=== PATIENT | female | born 1930 | race Hispanic/Latino ===

== ENCOUNTER 2019-09-19 10:22 | Emergency (ER) | payer MEDICARE ==
[2019-09-19 10:57] VITALS: BP 208/79
--- NOTE | 2019-09-19 11:51 | Emergency Department Report ---
Upper Extremity - HPI Chief Complaint: Extremity Injury, Upper Stated Complaint: RT THUMB PAIN Time Seen by Provider: 09/19/19 11:44 Upper Extremity: Right Thumb Occurred When: >5 Days Mechanism: Other Severity: mild Symptoms: No Pain with Movement, No Deformity, No Limited Range of Movement, No Numbness, No Weakness, No Swelling, No Bruising/Ecchymosis, No Laceration or Abrasion Other History: 89 yo cauca. female comes to er with r thumb pain sp fall and fx many years ago. no new injury. her pcp at clinic told her to come to er. High functioning for age. full rom. ED Review of Systems ROS: Stated complaint: RT THUMB PAIN Other details as noted in HPI Comment: All other systems reviewed and negative ED Past Medical Hx - Past Medical History Previous Medical History?: Yes Hx Hypertension: Yes Hx GERD: Yes - Surgical History Past Surgical History?: Yes Additional Surgical History: broken ankle (r), right carotid endardectomy - Social History Smoking Status: Never Smoker Substance Use Type: None - Medications Home Medications: Home Medications Medication Instructions Recorded Confirmed Last Taken Type AtorvaSTATin [Lipitor] 1 tab PO DAILY 02/11/19 02/11/19 Unknown History Metoprolol Xl [Metoprolol 25 mg PO QDAY #30 05/20/19 Unknown Rx SUCCINATE ER TAB] Naproxen [Naprosyn] 500 mg PO Q12H PRN #20 tablet 09/19/19 Unknown Rx Upper Extremity Exam - Exam General: Vital signs noted. No distress. Alert and acting appropriately. Head and Torso: No HEENT Abnormality, No Neck Tenderness, No Chest/Lungs Abnormality, No Abdominal Tenderness, No Back Tenderness Shoulder Exam: Yes Normal Range of Motion in Shoulder, No Shoulder Tenderness, No Clavicle Tenderness, No Shoulder Deformity, No AC Joint Tenderness Arm Exam: No Arm/Humerus Tenderness, No Arm Deformity Elbow: No Elbow Tenderness, No Normal Range of Motion in Elbow, No Elbow Deformity Forearm: No Forearm Tenderness, No Forearm Deformity, No Pain with Pronation, No Pain with Supination Wrist: Yes Normal ROM in Wrist, No Wrist Tenderness, No Wrist Deformity, No Snuffbox Tenderness, No Pain with Axial Thumb Compression Hand: Yes Normal ROM in Digit(s), No Hand Tenderness, No Hand Deformity, No Digit Tenderness, No Digit(s) Deformity, No Tendon Dysfunction CMS Exam: No Broken Skin, No Normal Distal Pulses, No Normal Capillary Refill, No Normal Distal Sensation ED Course Vital Signs 09/19/19 10:56 Temperature 97.7 F Pulse Rate 68 Respiratory 18 Rate Blood Pressure 208/79 O2 Sat by Pulse 100 Oximetry ED Medical Decision Making - Medical Decision Making no fall/trauma old injury educated pt on arthritis- full rom and neurovasc intact dc home with naprosyn and pcp follow up; she has only tried tylenol at home with minimal relief Vital Signs 09/19/19 10:56 Temperature 97.7 F Pulse Rate 68 Respiratory 18 Rate Blood Pressure 208/79 O2 Sat by Pulse 100 Oximetry - Differential Diagnosis chronic injury Critical care attestation.: If time is entered above; I have spent that time in minutes in the direct care of this critically ill patient, excluding procedure time. ED Disposition Clinical Impression: Arthritis Disposition: DC-01 TO HOME OR SELFCARE Is pt being admited?: No Does the pt Need Aspirin: No Condition: Stable Instructions: Osteoarthritis (ED) Additional Instructions: warm compresses med as ordered today follow up with pcp Prescriptions: Naproxen [Naprosyn] 500 mg PO Q12H PRN #20 tablet PRN Reason: Pain Referrals: BEST HAMILTON MD [Staff Physician] - 3-5 Days Time of Disposition: 11:51
== END 2019-09-19 12:25 | disposition home or self-care (01) ==
LOC: ED 10:22
DX: M13.841 Other specified arthritis, right hand (principal); I10 Essential (primary) hypertension; K21.9 Gastro-esophageal reflux disease without esophagitis; Z98.890 Other specified postprocedural states; Z79.899 Other long term (current) drug therapy; Z88.0 Allergy status to penicillin
CPT/HCPCS: 99281

== ENCOUNTER 2020-02-25 13:02 | Emergency (ER) | payer MEDICARE ==
[2020-02-25 19:33] VITALS: BP 237/92
== END 2020-02-25 21:30 | disposition left against medical advice (07) ==
LOC: ED 13:02
DX: I10 Essential (primary) hypertension (principal); Z53.21 Procedure and treatment not carried out due to patient leaving prior to being seen by health care provider

== ENCOUNTER 2021-03-01 13:26 | Inpatient (IN) | payer MEDICARE ==
--- NOTE | 2021-03-01 13:51 | Emergency Department Report ---
<ALINA HELTON - Last Filed: 03/01/21 22:38> ED Abdominal Pain HPI - General Stated Complaint: ABD SWELLING/HIGH BLOOD PRESSURE Time Seen by Provider: 03/01/21 13:46 - Related Data Home Medications Medication Instructions Recorded Confirmed Last Taken AtorvaSTATin [Lipitor] 1 tab PO DAILY 02/11/19 03/02/21 Unknown Previous Rx's Medication Instructions Recorded Last Taken Type Metoprolol Xl [Metoprolol 25 mg PO QDAY #30 05/20/19 Unknown Rx SUCCINATE ER TAB] Naproxen [Naprosyn] 500 mg PO Q12H PRN #20 tablet 09/19/19 Unknown Rx Allergies Allergy/AdvReac Type Severity Reaction Status Date / Time Penicillins Allergy Unknown Rash Verified 03/02/21 04:37 ED Past Medical Hx - Medications Home Medications: Home Medications Medication Instructions Recorded Confirmed Last Taken Type AtorvaSTATin [Lipitor] 1 tab PO DAILY 02/11/19 03/02/21 Unknown History Metoprolol Xl [Metoprolol 25 mg PO QDAY #30 05/20/19 03/02/21 Unknown Rx SUCCINATE ER TAB] Naproxen [Naprosyn] 500 mg PO Q12H PRN #20 tablet 09/19/19 03/02/21 Unknown Rx ED Medical Decision Making - Lab Data Result diagrams: 03/01/21 14:36 03/01/21 14:36 ED Disposition Clinical Impression: Acute abdominal pain, Transaminitis, Hyperbilirubinemia, Biliary obstruction, Elevated blood pressure reading, Pleural effusion Disposition: ADMITTED INPATIENT Condition: Fair <TRUDI WITT - Last Filed: 03/02/21 00:37> ED Course - Reevaluation(s) Reevaluation #1: 03/01/21 18:02 Patient signed out to me by the previous physician, Dr. Pereyra. The patient is an 89-year-old female, who presents to the ER with a complaint of left lower quadrant pain, and abdominal swelling. She denies fever, chills, nausea, vomiting diarrhea, but she endorses decreased appetite, generalized weakness, and unintentional weight loss. The patient denies hematemesis and bright red blood per rectum. The patient believes that she has had an unremarkable colonoscopy within the past 10 years, she is not sure about a mammogram or Pap smear. The patient lives at home with a frail young child/daughter, and the patient is able to ambulate at home with a cane and a walker. The patient has obvious abdominal distention, no significant tenderness, and is found to have transaminitis and hyperbilirubinemia. CT scan pending at this time. We will reassess after CT scan has been interpreted. She is not in any acute distress at this time 03/01/21 18:32 Patient is found to have transaminitis, ascites, biliary distention, we will discuss with both GI on-call, and general surgery on-call. Antibiotics, blood cultures and lactic acid ordered. I did discuss the possibility of admitting this patient to the hospital service, she is agreeable to admission hospital [facility]. We will admit this patient to the medical service once we have discussed the patient's case with the aforementioned consultants. 03/01/21 19:10 Dr Helton to admit to [facility] Blood pressure improved. Both GI and general surgery have been consulted. - Consultations Consultation #1: 03/01/21 18:42 Contacted gastroenterology on-call, Dr. Major. We discussed the patient's history, physical, laboratory studies and imaging studies and the plan of care. His group will follow in consultation. He agrees with the plan of care. Consultation #2: 03/01/21 18:52 Discussed the patient's history, physical, laboratory studies and imaging studies with general surgeon on-call, Dr. Jyotsna Nicole She will follow in consultation and make further inpatient recommendations. She agrees with the plan of care. ED Medical Decision Making - Lab Data Result diagrams: 03/01/21 14:36 03/01/21 14:36 Vital Signs 03/01/21 14:30 Temperature 98.9 F Pulse Rate 90 Respiratory 16 Rate Blood Pressure 204/98 O2 Sat by Pulse 98 Oximetry Lab Results 03/01/21 03/01/21 03/01/21 Range/Units 14:36 14:36 14:36 WBC 8.1 (4.5-11.0) K/mm3 RBC 4.44 (3.65-5.03) M/mm3 Hgb 14.7 H (10.1-14.3) gm/dl Hct 42.8 (30.3-42.9) % MCV 96 (79-97) fl MCH 33 H (28-32) pg MCHC 34 (30-34) % RDW 13.6 (13.2-15.2) % Plt Count 245 (140-440) K/mm3 Lymph % (Auto) 18.8 (13.4-35.0) % [place] % (Auto) 12.7 H (0.0-7.3) % Eos % (Auto) 0.9 (0.0-4.3) % Baso % (Auto) 0.7 (0.0-1.8) % Lymph # (Auto) 1.5 (1.2-5.4) K/mm3 [place] # (Auto) 1.0 H (0.0-0.8) K/mm3 Eos # (Auto) 0.1 (0.0-0.4) K/mm3 Baso # (Auto) 0.1 (0.0-0.1) K/mm3 Seg Neutrophils % 66.9 (40.0-70.0) % Seg Neutrophils # 5.4 (1.8-7.7) K/mm3 PT 16.5 H (12.2-14.9) Sec. INR 1.28 H (0.87-1.13) APTT 35.4 (24.2-36.6) Sec. Sodium 136 L (137-145) mmol/L Potassium 3.8 (3.6-5.0) mmol/L Chloride 102.0 (98-107) mmol/L Carbon Dioxide 22 (22-30) mmol/L Anion Gap 16 mmol/L BUN 15 (7-17) mg/dL Creatinine 0.7 (0.6-1.2) mg/dL Estimated GFR > 60 ml/min BUN/Creatinine Ratio 21 % Glucose 110 H (65-100) mg/dL Calcium 9.4 (8.4-10.2) mg/dL Total Bilirubin 3.10 H (0.1-1.2) mg/dL Direct Bilirubin 2.0 H (0-0.2) mg/dL Indirect Bilirubin 1.1 mg/dL AST 101 H (5-40) units/L ALT 47 (7-56) units/L Alkaline Phosphatase 121 (35-129) units/L Total Protein 5.9 L (6.3-8.2) g/dL Albumin 2.9 L (3.9-5) g/dL Albumin/Globulin Ratio 1.0 % Lipase 24 (13-60) units/L - Radiology Data Radiology results: pending, report reviewed, image reviewed CT abdomen pelvis w con INDICATION / CLINICAL INFORMATION: L.L.Q. abdominal pain with abd distention x 5 days, 100ml of omnipaque 300 given. TECHNIQUE: Axial CT imaging of abdomen and pelvis was obtained with IV contrast. Coronal and sagittal reformatted imaging obtained and reviewed. All CT scans at this location are performed using CT dose reduction for ALARA by means of automated exposure control. COMPARISON: None available. FINDINGS: CT abdomen with contrast demonstrates severe intrahepatic biliary dilatation. There is marked dilatation of the common bile duct as well. The common bile duct measures 1.7 cm in diameter. The gallbladder is distended but does not appear to be acutely inflamed. The liver is otherwise unremarkable. The spleen contains several cysts, but is otherwise normal. No visible pancreatic mass. There is a moderate to large amount of free fluid throughout the upper abdomen. There is a 4.5 cm simple cyst within the left kidney. The kidneys are otherwise unremarkable. Small hiatal hernia. Bilateral pleural effusions, larger on the right. Right basilar parenchymal disease felt to most likely be atelectasis. CT pelvis with contrast does not demonstrate any mass or focal inflammatory change. Large amount of free fluid is seen throughout the pelvis. GI tract is grossly unremarkable. The appendix is not identified. Visualized lung bases show a very small left pleural effusion and a small to moderate size right pleural effusion. There is mild right basilar atelectasis.. No acute significant osseous abnormality is noted. IMPRESSION: 1. This is an abnormal CT scan. 2. There is severe dilatation of the biliary tree including the common bile duct and intrahepatic biliary system. The common bile duct measures 17 mm in diameter with a normal diameter being 6 mm or less. The source of the obstruction is unclear. There is gallbladder distention without associated inflammatory change. Further evaluation to determine the cause of the biliary dilatation is recommended. ERCP may provide the best answer. 2. Large amount of ascites noted throughout the abdomen and pelvis. 3. Bilateral pleural effusions, larger on the right. Signer Name: Hayley Bustillos MD Signed: 03/01/2021 5:06 PM Workstation Name: [id number] ED Disposition Is pt being admited?: Yes Does the pt Need Aspirin: No <RAF PEREYRA - Last Filed: 03/02/21 15:43> ED Abdominal Pain HPI - History of Present Illness Initial Comments: 89-year-old female, history of hypertension, presents to ED with abdominal distention over the last 5 days. Patient reports only some very mild left lower quadrant pain. She denies any fever, nausea or vomiting, extremity swelling. Patient denies any tobacco or alcohol use. MD Complaint: other (Abdominal distention) -: days(s) (5) Location: diffuse Radiation: none Migration to: no migration Severity: moderate Quality: dull Consistency: constant Improves With: nothing Worsens With: nothing Associated Symptoms: denies: nausea, vomiting, diarrhea, fever ED Review of Systems ROS: Stated complaint: ABD SWELLING/HIGH BLOOD PRESSURE Other details as noted in HPI Comment: All other systems reviewed and negative Constitutional: denies: chills, fever Gastrointestinal: abdominal pain. denies: nausea, vomiting, diarrhea ED Past Medical Hx - Past Medical History Hx Hypertension: Yes Hx GERD: Yes - Surgical History Additional Surgical History: broken ankle (r), right carotid endardectomy - Social History Smoking Status: Never Smoker Substance Use Type: None ED Physical Exam - General General appearance: alert, in no apparent distress - Head Head exam: Present: atraumatic, normocephalic - Eye Eye exam: Present: normal appearance, EOMI, scleral icterus (Very slightly icteric sclera) - ENT ENT exam: Present: mucous membranes moist - Neck Neck exam: Present: normal inspection - Respiratory Respiratory exam: Present: normal lung sounds bilaterally. Absent: respiratory distress - Cardiovascular Cardiovascular Exam: Present: regular rate, normal rhythm - GI/Abdominal GI/Abdominal exam: Present: soft, distended (Moderately), other. Absent: tenderness - Extremities Exam Extremities exam: Present: normal inspection - Neurological Exam Neurological exam: Present: alert, oriented X3 - Psychiatric Psychiatric exam: Present: normal affect, normal mood - Skin Skin exam: Present: warm, dry, intact, normal color ED Course Vital Signs 03/01/21 03/01/21 03/01/21 14:30 15:00 17:00 Temperature 98.9 F Pulse Rate 90 80 76 Respiratory 16 16 16 Rate Blood Pressure 204/98 Blood Pressure 198/98 168/88 [Left] O2 Sat by Pulse 98 97 98 Oximetry 03/01/21 03/01/21 03/01/21 18:09 18:16 18:30 Temperature Pulse Rate 88 90 91 H Respiratory 18 14 13 Rate Blood Pressure 163/74 163/74 Blood Pressure 160/92 [Left] O2 Sat by Pulse 97 97 93 Oximetry 03/01/21 03/01/21 03/01/21 18:31 18:32 18:46 Temperature Pulse Rate 91 H 91 H Respiratory 18 13 12 Rate Blood Pressure 163/74 Blood Pressure [Left] O2 Sat by Pulse 95 96 95 Oximetry 03/01/21 03/01/21 03/01/21 18:54 19:00 19:16 Temperature Pulse Rate 90 90 93 H Respiratory 11 L 16 14 Rate Blood Pressure 167/84 163/74 163/74 Blood Pressure [Left] O2 Sat by Pulse 94 94 94 Oximetry 03/01/21 03/01/21 03/01/21 19:30 19:46 20:00 Temperature Pulse Rate 92 H 93 H 94 H Respiratory 20 14 15 Rate Blood Pressure 163/74 163/74 165/80 Blood Pressure [Left] O2 Sat by Pulse 93 96 94 Oximetry 03/01/21 03/01/21 03/01/21 20:16 20:30 20:46 Temperature Pulse Rate 96 H 91 H 90 Respiratory 18 18 12 Rate Blood Pressure 165/80 165/80 165/80 Blood Pressure [Left] O2 Sat by Pulse 94 94 95 Oximetry 03/01/21 03/01/21 03/01/21 21:00 21:16 21:30 Temperature Pulse Rate 91 H 89 88 Respiratory 14 15 12 Rate Blood Pressure 174/77 165/80 165/80 Blood Pressure [Left] O2 Sat by Pulse 95 94 94 Oximetry 03/01/21 03/01/21 03/01/21 21:46 23:00 23:16 Temperature Pulse Rate 98 H 92 H 92 H Respiratory 18 18 13 Rate Blood Pressure 165/80 165/57 165/57 Blood Pressure [Left] O2 Sat by Pulse 95 93 Oximetry 03/01/21 03/01/21 03/02/21 23:30 23:46 00:00 Temperature Pulse Rate 93 H 92 H 97 H Respiratory 18 20 18 Rate Blood Pressure 165/57 165/57 155/84 Blood Pressure [Left] O2 Sat by Pulse 92 92 96 Oximetry 03/02/21 03/02/21 03/02/21 00:16 00:30 00:46 Temperature Pulse Rate 98 H 97 H 94 H Respiratory 15 17 16 Rate Blood Pressure 155/84 155/84 155/84 Blood Pressure [Left] O2 Sat by Pulse 95 94 94 Oximetry 03/02/21 03/02/21 03/02/21 01:20 01:30 01:40 Temperature Pulse Rate 84 85 83 Respiratory 17 15 15 Rate Blood Pressure 192/87 192/87 192/87 Blood Pressure [Left] O2 Sat by Pulse 94 94 95 Oximetry 03/02/21 03/02/21 03/02/21 01:50 02:00 02:10 Temperature Pulse Rate 84 87 87 Respiratory 11 L 12 16 Rate Blood Pressure 175/74 175/74 192/87 Blood Pressure [Left] O2 Sat by Pulse 96 94 95 Oximetry 03/02/21 03/02/21 03/02/21 02:20 02:30 02:40 Temperature Pulse Rate 89 90 89 Respiratory 15 10 L 15 Rate Blood Pressure 192/87 192/87 175/74 Blood Pressure [Left] O2 Sat by Pulse 94 95 94 Oximetry ED Medical Decision Making - Lab Data Result diagrams: 03/02/21 04:40 03/02/21 04:40 - Medical Decision Making 89-year-old female presents to ED with abdominal distention over the last 5 days. Patient initially hypertensive, however blood pressure has improved without intervention. Patient has slightly icteric sclera on exam. No significant jaundice of the skin. No abdominal tenderness on exam. Abdomen is distended with likely ascites present. Labs show total bilirubin of 3.1 with normal lipase. We are currently awaiting results of CT abdomen pelvis. Patient is signed out to Dr. Witt to follow-up on CT results. - Differential Diagnosis Malignancy, cirrhosis, infection Critical care attestation.: If time is entered above; I have spent that time in minutes in the direct care of this critically ill patient, excluding procedure time.
[2021-03-01 15:22] LABS: Basophils # (Auto) 0.1 K/mm3 (0.0-0.1); Basophils % (Auto) 0.7 % (0.0-1.8); Eosinophils # (Auto) 0.1 K/mm3 (0.0-0.4); Eosinophils % (Auto) 0.9 % (0.0-4.3); Hematocrit 42.8 % (30.3-42.9); Hemoglobin 14.7 gm/dl (10.1-14.3); Lymphocytes # (Auto) 1.5 K/mm3 (1.2-5.4); Lymphocytes % (Auto) 18.8 % (13.4-35.0); Mean Corpuscular HGB Conc 34 % (30-34); Mean Corpuscular Volume 96 fl (79-97); Monocytes % (Auto) 12.7 % (0.0-7.3); Platelet Count 245 K/mm3 (140-440); Red Blood Count 4.44 M/mm3 (3.65-5.03); Red Cell Distribution Width 13.6 % (13.2-15.2)
[2021-03-01 15:33] LABS: INR 1.28 (0.87-1.13); Partial Thromboplastin Time 35.4 Sec. (24.2-36.6)
[2021-03-01 15:43] LABS: Alanine Aminotransferase 47 units/L (7-56); Albumin 2.9 g/dL (3.9-5); Blood Urea Nitrogen 15 mg/dL (7-17); Calcium 9.4 mg/dL (8.4-10.2); Hemolysis Index 3
[2021-03-01 15:54] LABS: BUN/Creatinine Ratio 21
[2021-03-01] MEDS ORDERED: MORPHINE 4 MG/1 ML INJ IV ONE (18:02)
--- NOTE | 2021-03-01 18:10 | Cat Scan Report ---
CT abdomen pelvis w con INDICATION / CLINICAL INFORMATION: L.L.Q. abdominal pain with abd distention x 5 days, 100ml of omnipaque 300 given. TECHNIQUE: Axial CT imaging of abdomen and pelvis was obtained with IV contrast. Coronal and sagittal reformatte d imaging obtained and reviewed. All CT scans at this location are performed using CT dose reduction for ALARA by means of automated exposure control. COMPARISON: None available. FINDINGS: CT abdomen with contrast demonstrates severe intrahepatic biliary dilatation. There is marked dilatat ion of the common bile duct as well. The common bile duct measures 1.7 cm in diameter. The gallbladde r is distended but does not appear to be acutely inflamed. The liver is otherwise unremarkable. The s pleen contains several cysts, but is otherwise normal. No visible pancreatic mass. There is a moderat e to large amount of free fluid throughout the upper abdomen. There is a 4.5 cm simple cyst within th e left kidney. The kidneys are otherwise unremarkable. Small hiatal hernia. Bilateral pleural effusio ns, larger on the right. Right basilar parenchymal disease felt to most likely be atelectasis. CT pelvis with contrast does not demonstrate any mass or focal inflammatory change. Large amount of f ree fluid is seen throughout the pelvis. GI tract is grossly unremarkable. The appendix is not identi fied. Visualized lung bases show a very small left pleural effusion and a small to moderate size right pleu ral effusion. There is mild right basilar atelectasis.. No acute significant osseous abnormality is noted. IMPRESSION: 1. This is an abnormal CT scan. 2. There is severe dilatation of the biliary tree including the common bile duct and intrahepatic jason iary system. The common bile duct measures 17 mm in diameter with a normal diameter being 6 mm or les s. The source of the obstruction is unclear. There is gallbladder distention without associated infla mmatory change. Further evaluation to determine the cause of the biliary dilatation is recommended. E SERVICE DELIVERY MANAGER may provide the best answer. 2. Large amount of ascites noted throughout the abdomen and pelvis. 3. Bilateral pleural effusions, larger on the right. Signer Name: Hayley Bustillos MD Signed: 03/01/2021 6:06 PM Workstation Name: [id number]
[2021-03-01] MEDS ORDERED: MORPHINE 2 MG/1 ML INJ IV ONE (22:10)
--- NOTE | 2021-03-01 22:35 | History and Physical Report ---
History of Present Illness Date of examination: 03/01/21 Date of admission: 03/01/21 19:11 Chief complaint: Abdominal distention for 5 days History of present illness: 89-year-old female with history of hypertension and GERD presents to the emergency room for abdominal distention of 5 days. Patient is very specific that the abdominal distention has been there for 5 days and not for a long period of time. Patient also has icterus. No fever or nausea or vomiting. No extremity swelling. No. No nicotine use. No altered sensorium. No fever or chills. - Past Medical History --Hypertension: Yes --GERD: Yes - Surgical History Additional Surgical History: broken ankle (r), right carotid endardectomy - Social History --Smoking Status: Never Smoker --Substance Use Type: None -Family history -- Htn - Medications Home Medications: Home Medications Medication Instructions Recorded Confirmed Last Taken Type AtorvaSTATin [Lipitor] 1 tab PO DAILY 02/11/19 02/11/19 Unknown History Metoprolol Xl [Metoprolol 25 mg PO QDAY #30 05/20/19 Unknown Rx SUCCINATE ER TAB] Naproxen [Naprosyn] 500 mg PO Q12H PRN #20 tablet 09/19/19 Unknown Rx Review of Systems Comment: All other systems reviewed and negative Constitutional: denies: chills, fever Gastrointestinal: abdominal pain. denies: nausea, vomiting, diarrhea Medications and Allergies Allergies Allergy/AdvReac Type Severity Reaction Status Date / Time Penicillins Allergy Unknown Rash Verified 03/02/21 04:37 Home Medications Medication Instructions Recorded Confirmed Last Taken Type AtorvaSTATin [Lipitor] 1 tab PO DAILY 02/11/19 02/11/19 Unknown History Metoprolol Xl [Metoprolol 25 mg PO QDAY #30 05/20/19 Unknown Rx SUCCINATE ER TAB] Naproxen [Naprosyn] 500 mg PO Q12H PRN #20 tablet 09/19/19 Unknown Rx Active Meds: Active Medications Levofloxacin/Dextrose (Levaquin 500mg/100ml) 500 mg in 100 mls @ 100 mls/hr IV ONCE ONE; Protocol Stop: 03/01/21 22:59 Exam - Constitutional Vitals: Temp Pulse Resp BP Pulse Ox 98.9 F 91 H 12 163/74 95 03/01/21 14:30 03/01/21 18:46 03/01/21 18:46 03/01/21 18:46 03/01/21 18:46 General appearance: Present: no acute distress, well-nourished, obese - EENT Eyes: Present: PERRL, scleral icterus ENT: hearing intact, clear oral mucosa - Neck Neck: Present: supple, normal ROM - Respiratory Respiratory effort: normal Respiratory: bilateral: CTA - Cardiovascular Heart rate: 78 Rhythm: regular Heart Sounds: Present: S1 & S2. Absent: rub, click - Extremities Extremities: pulses symmetrical, No edema Peripheral Pulses: within normal limits - Abdominal General gastrointestinal: Present: soft, non-tender, distended, normal bowel sounds Female genitourinary: Present: normal - Rectal Rectal Exam: deferred - Integumentary Integumentary: Present: clear, warm, dry - Musculoskeletal Musculoskeletal: gait normal, strength equal bilaterally - Psychiatric Psychiatric: appropriate mood/affect, intact judgment & insight - Neurologic Neurologic: CNII-XII intact, moves all extremities - Allied Health Allied health notes reviewed: nursing, case management HEART Score - HEART Score History: Slightly suspicious Age: > 65 Risk factors: 1-2 risk factors Troponin: < normal limit - Critical Actions Critical Actions: 0-3 pts:0.9-1.7%risk of adverse cardiac event.Candidate for discharge Results - Labs CBC & Chem 7: 03/02/21 04:40 03/02/21 04:40 Labs: Laboratory Last Values WBC 8.1 K/mm3 (4.5-11.0) 03/01/21 14:36 RBC 4.44 M/mm3 (3.65-5.03) 03/01/21 14:36 Hgb 14.7 gm/dl (10.1-14.3) H 03/01/21 14:36 Hct 42.8 % (30.3-42.9) 03/01/21 14:36 MCV 96 fl (79-97) 03/01/21 14:36 MCH 33 pg (28-32) H 03/01/21 14:36 MCHC 34 % (30-34) 03/01/21 14:36 RDW 13.6 % (13.2-15.2) 03/01/21 14:36 Plt Count 245 K/mm3 (140-440) 03/01/21 14:36 Lymph % (Auto) 18.8 % (13.4-35.0) 03/01/21 14:36 [place] % (Auto) 12.7 % (0.0-7.3) H 03/01/21 14:36 Eos % (Auto) 0.9 % (0.0-4.3) 03/01/21 14:36 Baso % (Auto) 0.7 % (0.0-1.8) 03/01/21 14:36 Lymph # (Auto) 1.5 K/mm3 (1.2-5.4) 03/01/21 14:36 [place] # (Auto) 1.0 K/mm3 (0.0-0.8) H 03/01/21 14:36 Eos # (Auto) 0.1 K/mm3 (0.0-0.4) 03/01/21 14:36 Baso # (Auto) 0.1 K/mm3 (0.0-0.1) 03/01/21 14:36 Seg Neutrophils % 66.9 % (40.0-70.0) 03/01/21 14:36 Seg Neutrophils # 5.4 K/mm3 (1.8-7.7) 03/01/21 14:36 PT 16.5 Sec. (12.2-14.9) H 03/01/21 14:36 INR 1.28 (0.87-1.13) H 03/01/21 14:36 APTT 35.4 Sec. (24.2-36.6) 03/01/21 14:36 Sodium 136 mmol/L (137-145) L 03/01/21 14:36 Potassium 3.8 mmol/L (3.6-5.0) 03/01/21 14:36 Chloride 102.0 mmol/L (98-107) 03/01/21 14:36 Carbon Dioxide 22 mmol/L (22-30) 03/01/21 14:36 Anion Gap 16 mmol/L 03/01/21 14:36 BUN 15 mg/dL (7-17) 03/01/21 14:36 Creatinine 0.7 mg/dL (0.6-1.2) 03/01/21 14:36 Estimated GFR > 60 ml/min 03/01/21 14:36 BUN/Creatinine Ratio 21 % 03/01/21 14:36 Glucose 110 mg/dL (65-100) H 03/01/21 14:36 Lactic Acid 1.30 mmol/L (0.7-2.0) 03/01/21 18:43 Calcium 9.4 mg/dL (8.4-10.2) 03/01/21 14:36 Total Bilirubin 3.10 mg/dL (0.1-1.2) H 03/01/21 14:36 Direct Bilirubin 2.0 mg/dL (0-0.2) H 03/01/21 14:36 Indirect Bilirubin 1.1 mg/dL 03/01/21 14:36 AST 101 units/L (5-40) H 03/01/21 14:36 ALT 47 units/L (7-56) 03/01/21 14:36 Alkaline Phosphatase 121 units/L (35-129) 03/01/21 14:36 Total Protein 5.9 g/dL (6.3-8.2) L 03/01/21 14:36 Albumin 2.9 g/dL (3.9-5) L 03/01/21 14:36 Albumin/Globulin Ratio 1.0 % 03/01/21 14:36 Lipase 24 units/L (13-60) 03/01/21 14:36 Short CBC 03/01/21 03/02/21 Range/Units 14:36 04:40 WBC 8.1 9.4 (4.5-11.0) K/mm3 Hgb 14.7 H 14.3 (10.1-14.3) gm/dl Hct 42.8 42.0 (30.3-42.9) % Plt Count 245 234 (140-440) K/mm3 BMP 03/01/21 03/02/21 14:36 04:40 Sodium 136 L 138 Potassium 3.8 4.0 Chloride 102.0 105.4 Carbon Dioxide 22 22 BUN 15 13 Creatinine 0.7 0.8 Glucose 110 H 95 Calcium 9.4 9.3 Liver Function 03/01/21 03/02/21 Range/Units 14:36 04:40 Total Bilirubin 3.10 H 3.40 H (0.1-1.2) mg/dL Direct Bilirubin 2.0 H (0-0.2) mg/dL AST 101 H 98 H (5-40) units/L ALT 47 50 (7-56) units/L Alkaline Phosphatase 121 121 (35-129) units/L Albumin 2.9 L 2.7 L (3.9-5) g/dL - Imaging and Cardiology CT Scan - head: report reviewed Imaging and Cardiology: Abdominal CAT scan Severe dilatation of the biliary tree including the common bile duct and intrahepatic biliary system. The common bile duct measures 17 mm in diameter with a normal diameter being 6 mm or less. The source of the obstruction is unclear. There is a gallbladder distention without associated inflammatory changes. Further evaluation is good, and the cause of biliary dilation is responded. ERCP may produce the best answer. Large amount of ascites noted throughout the abdomen and pelvis. Bilateral pleural effusions larger on the right. Abdominal ultrasound Reports intermittent. Assessment and Plan Advance Directives: Yes (Full code) VTE prophylaxis?: Chemical Plan of care discussed with patient/family: Yes - Patient Problems (1) Ascites Current Visit: Yes Status: Acute Qualifiers: Ascites type: other type Qualified Code(s): R18.8 - Other ascites Plan to address problem: Etiology unclear. Patient stated is been there for only 5 days which is difficult to believe May be ongoing for the last few months. Patient demonstrates immunity nonrotation. The site of obstruction not known. (2) Hyperbilirubinemia Current Visit: Yes Status: Acute Plan to address problem: Note dated. Dilated. Signs of obstruction not known differential diagnosis of pancreatic head mass. Patient may need ERCP (3) Transaminitis Current Visit: Yes Status: Acute Plan to address problem: Transaminitis mild Acute hepatitis profile requested (4) Hypertension Current Visit: Yes Status: Chronic Qualifiers: Hypertension type: primary hypertension Qualified Code(s): I10 - Essential (primary) hypertension Plan to address problem: Continue antihypertensives Adjust medications (5) GERD (gastroesophageal reflux disease) Current Visit: Yes Status: Chronic Qualifiers: Esophagitis presence: without esophagitis Qualified Code(s): K21.9 - Gastro-esophageal reflux disease without esophagitis Plan to address problem: Continue PPIs (6) Malnutrition Current Visit: Yes Status: Chronic Qualifiers: Protein-calorie malnutrition severity: moderate Plan to address problem: Moderate malnutrition secondary to poor dietary intake Dietary supplements requested (7) DVT prophylaxis Current Visit: Yes Status: Acute Plan to address problem: On heparin and GI prophylaxis
[2021-03-01] MEDS ORDERED: MORPHINE 2 MG/1 ML INJ IV PRN (22:39)
[2021-03-01] MEDS ORDERED: ONDANSETRON 4 MG/2 ML INJ IV PRN (22:39)
[2021-03-01] MEDS ORDERED: ACETAMINOPHEN 325 MG TAB PO PRN (22:39)
[2021-03-01] MEDS ORDERED: HYDROmorphone 1 MG/1 ML INJ IV PRN (22:39)
[2021-03-01] MEDS ORDERED: FAMOTIDINE 20 MG/2 ML INJ IV SCH (23:00)
[2021-03-02] MEDS: SODIUM CHLORIDE 0.9% 1000 ML 1,000 ML IV SCH (03:18)
[2021-03-02 05:06] LABS: Basophils % (Auto) 0.4 % (0.0-1.8); Eosinophils # (Auto) 0.1 K/mm3 (0.0-0.4); Eosinophils % (Auto) 0.7 % (0.0-4.3); Hemoglobin 14.3 gm/dl (10.1-14.3); Lymphocytes # (Auto) 1.6 K/mm3 (1.2-5.4); Lymphocytes % (Auto) 17.3 % (13.4-35.0); Mean Corpuscular HGB Conc 34 % (30-34); Mean Corpuscular Volume 96 fl (79-97); Monocytes # (Auto) 1.2 K/mm3 (0.0-0.8); Monocytes % (Auto) 13.3 % (0.0-7.3); Platelet Count 234 K/mm3 (140-440); Red Blood Count 4.37 M/mm3 (3.65-5.03); Red Cell Distribution Width 13.5 % (13.2-15.2)
[2021-03-02 05:28] LABS: Alanine Aminotransferase 50 units/L (7-56); Albumin 2.7 g/dL (3.9-5); BUN/Creatinine Ratio 16; Blood Urea Nitrogen 13 mg/dL (7-17); Calcium 9.3 mg/dL (8.4-10.2); Hemolysis Index 0
--- NOTE | 2021-03-02 07:45 | Ultrasound Report ---
ULTRASOUND ABDOMEN, LIMITED (RIGHT UPPER QUADRANT) INDICATION: Abdominal pain, biliary distention, transaminitis. COMPARISON: CT abdomen 03/01/2021 FINDINGS: Pancreas: Visualized portion shows no significant abnormality. Liver: Cirrhosis with nodular surface contour Gallbladder: Moderately distended gallbladder with gallbladder wall thickening measuring 6 mm. No gal lstones Bile ducts: Normal. Common Bile Duct measures 9 mm. Free fluid: Moderate amount of perihepatic ascites Additional Findings: None. IMPRESSION: 1. Cirrhosis with moderate ascites 2. Gallbladder wall thickening without gallstones likely secondary to hypoalbuminemia. 3. Moderate biliary ductal dilatation Signer Name: Kameron Elias MD Signed: 03/02/2021 7:41 AM Workstation Name: [id number]
[2021-03-02] MEDS: METOPROLOL SUCCINATE XL 25 MG TAB PO SCH (10:09)
[2021-03-02] MEDS: FAMOTIDINE 20 MG/2 ML INJ IV SCH ×2 (10:09→22:29)
[2021-03-02] MEDS: HEPARIN 5,000 UNIT/1 ML VIAL SUB-Q SCH ×2 (10:09→22:00)
--- NOTE | 2021-03-02 11:03 | Progress Note ---
Assessment and Plan - Patient Problems (1) Ascites Current Visit: Yes Status: Acute Qualifiers: Ascites type: other type Qualified Code(s): R18.8 - Other ascites Plan to address problem: GI team consulted, CT scan reviewed, abdominal ultrasound reviewed. (2) Biliary obstruction Current Visit: Yes Status: Acute Plan to address problem: GI team consulted. ERCP versus MRCP as per GI team. Serial liver function test. Serial abdominal exam. (3) Hyperbilirubinemia Current Visit: Yes Status: Acute Plan to address problem: Secondary to biliary obstruction, continue current therapy. GI team consulted. (4) Transaminitis Current Visit: Yes Status: Acute Plan to address problem: Repeat LFT in a.m. (5) DVT prophylaxis Current Visit: Yes Status: Acute Plan to address problem: SCD to bilateral lower extremities while in bed (6) Advance care planning Current Visit: Yes Status: Acute Plan to address problem: Disease education conducted, care plan discussed, diagnosis discussed, patient is full code, patient knowledges understanding and agreement with care plan, +30 minutes. History Interval history: 89 YO Female HD #2 with Biliary Obstruction, Ascites, and Abdominal Distention. Patient acknowledges flatus, patient denies constipation. Patient denies abdominal pain at this time. No reported nursing events. Hospitalist Physical - Constitutional Vitals: Temp Pulse Resp BP Pulse Ox 98.2 F 86 18 163/75 94 03/02/21 06:07 03/02/21 06:07 03/02/21 06:07 03/02/21 06:07 03/02/21 06:07 General appearance: Present: no acute distress, well-nourished, obese - EENT Eyes: Present: PERRL, scleral icterus ENT: hearing intact - Neck Neck: Present: supple - Respiratory Respiratory effort: normal Respiratory: bilateral: CTA - Cardiovascular Rhythm: regular Heart Sounds: Present: S1 & S2 - Extremities Extremities: no ischemia Peripheral Pulses: within normal limits - Abdominal General gastrointestinal: soft, non-tender, distended, no splenomegaly - Integumentary Integumentary: Present: clear, jaundice - Psychiatric Psychiatric: appropriate mood/affect, cooperative - Neurologic Neurologic: CNII-XII intact HEART Score - HEART Score Age: > 65 Risk factors: 1-2 risk factors Troponin: < normal limit - Critical Actions Critical Actions: 0-3 pts:0.9-1.7%risk of adverse cardiac event.Candidate for discharge Results - Labs CBC & Chem 7: 03/02/21 04:40 03/02/21 04:40 Labs: Laboratory Last Values WBC 9.4 K/mm3 (4.5-11.0) 03/02/21 04:40 RBC 4.37 M/mm3 (3.65-5.03) 03/02/21 04:40 Hgb 14.3 gm/dl (10.1-14.3) 03/02/21 04:40 Hct 42.0 % (30.3-42.9) 03/02/21 04:40 MCV 96 fl (79-97) 03/02/21 04:40 MCH 33 pg (28-32) H 03/02/21 04:40 MCHC 34 % (30-34) 03/02/21 04:40 RDW 13.5 % (13.2-15.2) 03/02/21 04:40 Plt Count 234 K/mm3 (140-440) 03/02/21 04:40 Lymph % (Auto) 17.3 % (13.4-35.0) 03/02/21 04:40 [place] % (Auto) 13.3 % (0.0-7.3) H 03/02/21 04:40 Eos % (Auto) 0.7 % (0.0-4.3) 03/02/21 04:40 Baso % (Auto) 0.4 % (0.0-1.8) 03/02/21 04:40 Lymph # (Auto) 1.6 K/mm3 (1.2-5.4) 03/02/21 04:40 [place] # (Auto) 1.2 K/mm3 (0.0-0.8) H 03/02/21 04:40 Eos # (Auto) 0.1 K/mm3 (0.0-0.4) 03/02/21 04:40 Baso # (Auto) 0.0 K/mm3 (0.0-0.1) 03/02/21 04:40 Seg Neutrophils % 68.3 % (40.0-70.0) 03/02/21 04:40 Seg Neutrophils # 6.4 K/mm3 (1.8-7.7) 03/02/21 04:40 PT 16.5 Sec. (12.2-14.9) H 03/01/21 14:36 INR 1.28 (0.87-1.13) H 03/01/21 14:36 APTT 35.4 Sec. (24.2-36.6) 03/01/21 14:36 Sodium 138 mmol/L (137-145) 03/02/21 04:40 Potassium 4.0 mmol/L (3.6-5.0) 03/02/21 04:40 Chloride 105.4 mmol/L (98-107) 03/02/21 04:40 Carbon Dioxide 22 mmol/L (22-30) 03/02/21 04:40 Anion Gap 15 mmol/L 03/02/21 04:40 BUN 13 mg/dL (7-17) 03/02/21 04:40 Creatinine 0.8 mg/dL (0.6-1.2) 03/02/21 04:40 Estimated GFR > 60 ml/min 03/02/21 04:40 BUN/Creatinine Ratio 16 % 03/02/21 04:40 Glucose 95 mg/dL (65-100) 03/02/21 04:40 Lactic Acid 1.30 mmol/L (0.7-2.0) 03/01/21 18:43 Calcium 9.3 mg/dL (8.4-10.2) 03/02/21 04:40 Total Bilirubin 3.40 mg/dL (0.1-1.2) H 03/02/21 04:40 Direct Bilirubin 2.0 mg/dL (0-0.2) H 03/01/21 14:36 Indirect Bilirubin 1.1 mg/dL 03/01/21 14:36 AST 98 units/L (5-40) H 03/02/21 04:40 ALT 50 units/L (7-56) 03/02/21 04:40 Alkaline Phosphatase 121 units/L (35-129) 03/02/21 04:40 Total Protein 5.5 g/dL (6.3-8.2) L 03/02/21 04:40 Albumin 2.7 g/dL (3.9-5) L 03/02/21 04:40 Albumin/Globulin Ratio 1.0 % 03/02/21 04:40 Lipase 24 units/L (13-60) 03/01/21 14:36 Microbiology: Microbiology 03/01/21 18:43 Peripheral/Venous Blood Culture - Preliminary Culture in Progress 03/01/21 18:43 Peripheral/Venous Blood Culture - Preliminary Culture in Progress Rodriguez/IV: Voiding Method External Female Catheter Active Medications - Current Medications Current Medications: Generic Name Dose Route Start Last Admin Trade Name Freq PRN Reason Stop Dose Admin Acetaminophen 650 mg 03/01/21 22:39 Acetaminophen 325 Mg Tab PO Q4H PRN Pain MILD(1-3)/Fever >100.5/PRECIADO Famotidine 10 mg 03/02/21 10:00 03/02/21 10:09 Famotidine 20 Mg/2 Ml Inj IV 10 mg BID HILARIA Administration Heparin Sodium (Porcine) 5,000 unit 03/02/21 10:00 03/02/21 10:09 Heparin 5,000 Unit/1 Ml Vial SUB-Q 5,000 unit Q12HR HILARIA Administration Hydromorphone HCl 0.5 mg 03/01/21 22:39 03/02/21 00:50 Hydromorphone 1 Mg/1 Ml Inj IV 0.5 mg Q3H PRN Administration Pain , Severe (7-10) Sodium Chloride 1,000 mls @ 42 mls/hr 03/01/21 22:45 03/02/21 03:18 Nacl 0.9% 1000 Ml IV 42 mls/hr DIRECT HILARIA Administration Metoprolol Succinate 25 mg 03/02/21 10:00 03/02/21 10:09 Metoprolol Succinate Xl 25 Mg Tab PO 25 mg QDAY HILARIA Administration Morphine Sulfate 2 mg 03/01/21 22:39 Morphine 2 Mg/1 Ml Inj IV Q4H PRN Pain, Moderate (4-6) Ondansetron HCl 4 mg 03/01/21 22:39 03/02/21 01:03 Ondansetron 4 Mg/2 Ml Inj IV 4 mg Q8H PRN Administration Nausea And Vomiting Sodium Chloride 10 ml 03/02/21 10:00 03/02/21 10:09 Sodium Chloride 0.9% 10 Ml Flush Syringe IV 10 ml BID HILARIA Administration Sodium Chloride 10 ml 03/01/21 22:39 Sodium Chloride 0.9% 10 Ml Flush Syringe IV PRN PRN LINE FLUSH Nutrition/Malnutrition Assess - Dietary Evaluation Nutrition/Malnutrition Findings: Nutrition Notes Start: 03/02/21 10:02 Freq: Status: Active Protocol: Document 03/02/21 10:02 YENNY (Rec: 03/02/21 10:09 YENNY [id number]) Nutrition Notes Need for Assessment generated from: fine patcher,MST Initial or Follow up Brief Note Current Diagnosis Hypertension Other Pertinent Diagnosis ascites Current Diet cardiac Labs/Tests T-bili 3.4 Pertinent Medications NS at 42 ml/hr Zofran Height 5 ft 2 in Weight 65 kg [place] Body Weight (kg) 50.00 BMI 26.2 Weight Status Appropriate Subjective/Other Information RN screen for MST. Unable to contact pt. No intakes yet in chart. Burn Absent Trauma Absent Minimum of two criteria No #1 Nutrition Diagnosis No nutrition diagnosis at this time Is patient on ventilator? No Is Patient Ambulatory and/or Out of Bed No REE-(Edmunds-St. Jeor-confined to bed) [phone] Calculation Used for Recommendations Edmunds-St Jeor Additional Notes Protein: (1-1.2g/kg) 65-78g Fluid: 1 ml/kcal or per MD Nutrition Intervention Change Diet Order: Continue Goal #1 Meet at least 75% of protein and kcal needs via PO Anticipated Discharge Needs: Cardiac Follow-Up By: 03/03/21 Additional Comments F/u: assessment
--- NOTE | 2021-03-02 13:51 | Consultation ---
History of Present Illness Consult date: 03/02/21 Reason for consult: abdominal pain Chief complaint: Abdominal distention, constipation - History of present illness History of present illness: 89-year-old female who presents to the emergency room with complaints of 2 to 3 weeks of worsening abdominal distention, constipation, early satiety. The patie nt states that she has never had symptoms like this in the past. She is usually regular with bowel movements and has not been able to have a bowel movement in several days. That along with abdominal distention was very concerning and therefore she came to the emergency room. She states that she was having diffuse abdominal discomfort due to the distention. She has not been able to eat or drink like normal because of early fullness. No fevers or chills, chest pain, shortness of breath. She admits to having a colonoscopy less than 10 years ago. Work-up in the emergency room revealed elevated bilirubin and a CT scan demonstrating dilatation of intra and extrahepatic biliary ducts, gallbl adder distention, ascites. Past History Past Medical History: GERD, hypertension, hyperlipidemia Past Surgical History: Other (Right ankle surgery, carotid endarterectomy) Social history: no significant social history Family history: no significant family history Medications and Allergies Allergies Allergy/AdvReac Type Severity Reaction Status Date / Time Penicillins Allergy Unknown Rash Verified 03/02/21 04:37 Home Medications Medication Instructions Recorded Confirmed Last Taken Type AtorvaSTATin [Lipitor] 1 tab PO DAILY 02/11/19 02/11/19 Unknown History Metoprolol Xl [Metoprolol 25 mg PO QDAY #30 05/20/19 Unknown Rx SUCCINATE ER TAB] Naproxen [Naprosyn] 500 mg PO Q12H PRN #20 tablet 09/19/19 Unknown Rx Active Meds: Active Medications Acetaminophen (Acetaminophen 325 Mg Tab) 650 mg PO Q4H PRN PRN Reason: Pain MILD(1-3)/Fever >100.5/PRECIADO Famotidine (Famotidine 20 Mg/2 Ml Inj) 10 mg IV BID [facility] Last Admin: 03/02/21 10:09 Dose: 10 mg Documented by: Heparin Sodium (Porcine) (Heparin 5,000 Unit/1 Ml Vial) 5,000 unit SUB-Q Q12HR [facility] Last Admin: 03/02/21 10:09 Dose: 5,000 unit Documented by: Hydromorphone HCl (Hydromorphone 1 Mg/1 Ml Inj) 0.5 mg IV Q3H PRN PRN Reason: Pain , Severe (7-10) Last Admin: 03/02/21 00:50 Dose: 0.5 mg Documented by: Sodium Chloride (Nacl 0.9% 1000 Ml) 1,000 mls @ 42 mls/hr IV DIRECT [facility] Last Admin: 03/02/21 03:18 Dose: 42 mls/hr Documented by: Metoprolol Succinate (Metoprolol Succinate Xl 25 Mg Tab) 25 mg PO QDAY [facility] Last Admin: 03/02/21 10:09 Dose: 25 mg Documented by: Morphine Sulfate (Morphine 2 Mg/1 Ml Inj) 2 mg IV Q4H PRN PRN Reason: Pain, Moderate (4-6) Ondansetron HCl (Ondansetron 4 Mg/2 Ml Inj) 4 mg IV Q8H PRN PRN Reason: Nausea And Vomiting Last Admin: 03/02/21 01:03 Dose: 4 mg Documented by: Sodium Chloride (Sodium Chloride 0.9% 10 Ml Flush Syringe) 10 ml IV BID [facility] Last Admin: 03/02/21 10:09 Dose: 10 ml Documented by: Sodium Chloride (Sodium Chloride 0.9% 10 Ml Flush Syringe) 10 ml IV PRN PRN PRN Reason: LINE FLUSH Review of Systems All systems: negative (10 point ROS performed and negative except for that listed in HPI) Exam Vital Signs Temp Pulse Resp BP Pulse Ox 98.9 F 90 16 204/98 98 03/01/21 14:30 03/01/21 14:30 03/01/21 14:30 03/01/21 14:30 03/01/21 14:30 Narrative exam: Gen.: Awake, alert, oriented x3. No apparent distress ENT: Trachea midline. No lymphadenopathy. Mild scleral icterus. CV: S1, S2 present Respiratory: No audible wheezes Abdomen: Soft, nontender, distended. No rebound, rigidity, guarding Extremities: No clubbing, cyanosis, edema Results - Labs 03/02/21 04:40 03/02/21 04:40 Abnormal lab results 03/01/21 03/01/21 03/01/21 Range/Units 14:36 14:36 14:36 Hgb 14.7 H (10.1-14.3) gm/dl MCH 33 H (28-32) pg [place] % (Auto) 12.7 H (0.0-7.3) % Heard # (Auto) 1.0 H (0.0-0.8) K/mm3 PT 16.5 H (12.2-14.9) Sec. INR 1.28 H (0.87-1.13) Sodium 136 L (137-145) mmol/L Glucose 110 H (65-100) mg/dL Total Bilirubin 3.10 H (0.1-1.2) mg/dL Direct Bilirubin 2.0 H (0-0.2) mg/dL AST 101 H (5-40) units/L Total Protein 5.9 L (6.3-8.2) g/dL Albumin 2.9 L (3.9-5) g/dL 03/02/21 03/02/21 Range/Units 04:40 04:40 Hgb (10.1-14.3) gm/dl MCH 33 H (28-32) pg [place] % (Auto) 13.3 H (0.0-7.3) % Heard # (Auto) 1.2 H (0.0-0.8) K/mm3 PT (12.2-14.9) Sec. INR (0.87-1.13) Sodium (137-145) mmol/L Glucose (65-100) mg/dL Total Bilirubin 3.40 H (0.1-1.2) mg/dL Direct Bilirubin (0-0.2) mg/dL AST 98 H (5-40) units/L Total Protein 5.5 L (6.3-8.2) g/dL Albumin 2.7 L (3.9-5) g/dL Diabetes panel 03/01/21 03/02/21 Range/Units 14:36 04:40 Sodium 136 L 138 (137-145) mmol/L Potassium 3.8 4.0 (3.6-5.0) mmol/L Chloride 102.0 105.4 (98-107) mmol/L Carbon Dioxide 22 22 (22-30) mmol/L BUN 15 13 (7-17) mg/dL Creatinine 0.7 0.8 (0.6-1.2) mg/dL Glucose 110 H 95 (65-100) mg/dL Calcium 9.4 9.3 (8.4-10.2) mg/dL AST 101 H 98 H (5-40) units/L ALT 47 50 (7-56) units/L Alkaline Phosphatase 121 121 (35-129) units/L Total Protein 5.9 L 5.5 L (6.3-8.2) g/dL Albumin 2.9 L 2.7 L (3.9-5) g/dL Calcium panel 03/01/21 03/02/21 Range/Units 14:36 04:40 Calcium 9.4 9.3 (8.4-10.2) mg/dL Albumin 2.9 L 2.7 L (3.9-5) g/dL Pituitary panel 03/01/21 03/02/21 Range/Units 14:36 04:40 Sodium 136 L 138 (137-145) mmol/L Potassium 3.8 4.0 (3.6-5.0) mmol/L Chloride 102.0 105.4 (98-107) mmol/L Carbon Dioxide 22 22 (22-30) mmol/L BUN 15 13 (7-17) mg/dL Creatinine 0.7 0.8 (0.6-1.2) mg/dL Glucose 110 H 95 (65-100) mg/dL Calcium 9.4 9.3 (8.4-10.2) mg/dL Adrenal panel 03/01/21 03/02/21 Range/Units 14:36 04:40 Sodium 136 L 138 (137-145) mmol/L Potassium 3.8 4.0 (3.6-5.0) mmol/L Chloride 102.0 105.4 (98-107) mmol/L Carbon Dioxide 22 22 (22-30) mmol/L BUN 15 13 (7-17) mg/dL Creatinine 0.7 0.8 (0.6-1.2) mg/dL Glucose 110 H 95 (65-100) mg/dL Calcium 9.4 9.3 (8.4-10.2) mg/dL Total Bilirubin 3.10 H 3.40 H (0.1-1.2) mg/dL AST 101 H 98 H (5-40) units/L ALT 47 50 (7-56) units/L Alkaline Phosphatase 121 121 (35-129) units/L Total Protein 5.9 L 5.5 L (6.3-8.2) g/dL Albumin 2.9 L 2.7 L (3.9-5) g/dL - Imaging CT scan - abdomen: report reviewed, image reviewed CT scan - pelvis: report reviewed, image reviewed US - abdomen: report reviewed, image reviewed Assessment and Plan 89-year-old female with 1. Dilated intra and extrahepatic bile ducts 2. Hyoerbilirubinemia 3. Ascites 4. cirrhosis - unknown etiology Plan: 1. diet as tolerated 2. MRCP ordered 3. recommend paracentesis 4. DVT pxp 5. prn pain control 6. Gi consult ordered 7. No stones in gallbladder on u/s, cause of distension uncertain. Will await results of above w/u and determine if surgical intervention is appropriate. Discussed results of imaging and plan with patient. All questions answered Thank you, please call with questions. Evaluation and treatment of this patient was during the time of the national and state emergency arising from COVID19 coronavirus pandemic. Treatment and procedures performed meet the current and available best practice and guidelines for patient during the COVID pandemic.
[2021-03-02 18:51] LABS: Bilirubin,Urine SM (Negative); Blood,Urine NEG (Negative); Calcium Oxalate Crystals,Urine 1+; Color,Urine Amber (Yellow); Mucus,Urine FEW /HPF
[2021-03-02 19:00] LABS: Ictotest,Urine Positive (Negative)
--- NOTE | 2021-03-03 01:55 | Consultation ---
DATE OF CONSULTATION: 03/02/2021 REFERRING PHYSICIAN: Dr. Pineda Levy. INDICATION: Abdominal pain. HISTORY OF PRESENT ILLNESS: The patient is an 89-year-old female with history of hypertension and reflux, who presented for abdominal pain. The patient reports abdominal pain and distention for 5 days. She reports that she has never had distention before. The patient also reports that she has noted yellowing of her eyes. She reports no significant weight loss. Denies any other specific complaints. She subsequently came to the emergency room, was evaluated, admitted and GI consulted. PAST MEDICAL HISTORY: Hypertension, reflux. MEDICATIONS: Reviewed and updated in chart. ALLERGIES: No known drug allergies. SOCIAL HISTORY: Denies alcohol, tobacco or drug abuse. FAMILY HISTORY: Negative for colon cancer, IBD or liver disease. REVIEW OF SYSTEMS: GENERAL: Reports some weakness. HEENT: No visual or tinnitus. PULMONARY: No shortness of breath, or chest pain. GASTROINTESTINAL: Denies complaints. OBJECTIVE: VITAL SIGNS: Temperature of 97.6, pulse 79, respiration 18, blood pressure 144/64. GENERAL: Fairly nourished with no acute distress. HEENT: Pupils round and reactive. PULMONARY: Clear to auscultation bilaterally. CARDIOVASCULAR: Regular rate and rhythm. Normal S1, S2. ABDOMEN: Loud bowel sounds, soft. SKIN: No obvious rashes. LABORATORY DATA: Pertinent for white count 9.4, hemoglobin and hematocrit of 14.3 and 42.0, platelet count of 234. Coags within normal limits. Chem-7 within normal limits. AST, ALT of 98 and 50, with a total bilirubin of 3.4. CT scan abdomen and pelvis with contrast performed on 03/01/2021 showed large amount of ascites throughout the abdomen and pelvis as well as severe dilation of the biliary tree including the common bile duct and intrahepatic duct along with gallbladder distention and inflammation. ASSESSMENT: An 89-year-old female who presents with abdominal distention with increased liver function tests and a CT scan with biliary dilatation, possibility of biliary obstruction secondary to stone, but most concerning for malignancy or other etiology. PLAN: 1. Await surgery consult. 2. MRI, MRCP. 3. CA 19-9 and other cancer markers. 4. Will await MRI and the above and consider further interventions. TID: [id number] RECEIPT: [id number] SHEA/DAVIS
[2021-03-03] MEDS: SODIUM CHLORIDE 0.9% 1000 ML 1,000 ML IV SCH (04:31)
[2021-03-03 07:00] LABS: Alanine Aminotransferase 40 units/L (7-56); Albumin 2.6 g/dL (3.9-5); BUN/Creatinine Ratio 19; Blood Urea Nitrogen 15 mg/dL (7-17); Calcium 8.8 mg/dL (8.4-10.2); Hemolysis Index 4
--- NOTE | 2021-03-03 11:06 | Electrocardiograph Report ---
[facility] Test Date: 2021-03-02 Test Time: 07:37:04 Pat Name: QING PEÑA Department: Room: A373 1 Gender: F Manager Protein: JULIANA : 1930 Requested By: TRUDI YEH Order Number: [id number] Reading MD: Boyd Irwin Measurements Intervals [place] Rate: 86 P: 62 CO: 191 QRS: -70 QRSD: 122 T: 23 QT: 394 QTc: 471 Interpretive Statements Sinus rhythm Atrial premature complex RBBB and LAFB No previous ECG available for comparison Electronically Signed On 03-03-2021 11:05:55 EDT by Boyd Irwin
--- NOTE | 2021-03-03 11:27 | Event Note ---
Date: 03/03/21 Interventional radiology does not perform paracentesis or thoracentesis at [facility]. Please coordinate with diagnostic radiology for details. This can be performed by calling the radiology department and/or placing order for US paracentesis.
[2021-03-03] MEDS: METOPROLOL SUCCINATE XL 25 MG TAB PO SCH (11:50)
[2021-03-03] MEDS: HEPARIN 5,000 UNIT/1 ML VIAL SUB-Q SCH ×2 (11:51→23:23)
[2021-03-03] MEDS: FAMOTIDINE 20 MG/2 ML INJ IV SCH ×2 (11:51→23:24)
[2021-03-03] MEDS ORDERED: MAGNESIUM HYDROXIDE (MOM) ORAL LIQD UDC PO PRN (17:30)
--- NOTE | 2021-03-03 17:35 | Gastroenterology Progress Note ---
Assessment and Plan GI: pt w/ new onset ascites w/ noted pancreatic/biliary dilation unclear etiology - agree w/ US guided paracenthesis as ordered - awaiting ca 19-9 - would prefer EUS to ERCP if pt unable to have MRCP - continue follow labs - will follow Subjective Date of service: 03/03/21 Interval history: - pt w/o complaints overnight. Pt does not want to do MRCP due to clautrophobic Objective - Constitutional Vitals: Temp Pulse Resp BP Pulse Ox 98.1 F 73 18 143/65 94 03/03/21 05:24 03/03/21 11:50 03/03/21 05:24 03/03/21 11:50 03/03/21 05:24 General appearance: no acute distress - EENT Eyes: PERRL - Respiratory Respiratory: bilateral: CTA - Cardiovascular Rhythm: regular Heart Sounds: Present: S1 & S2 - Gastrointestinal General gastrointestinal: Present: soft, non-tender, non-distended - Labs CBC & Chem 7: 03/02/21 04:40 03/03/21 06:23 Labs: Laboratory Results - last 24 hr 03/02/21 03/03/21 18:41 06:23 Sodium 138 Potassium 3.9 Chloride 106.5 Carbon Dioxide 22 Anion Gap 13 BUN 15 Creatinine 0.8 Estimated GFR > 60 BUN/Creatinine Ratio 19 Glucose 105 H Calcium 8.8 Total Bilirubin 2.20 H AST 81 H ALT 40 Alkaline Phosphatase 107 Total Protein 5.3 L Albumin 2.6 L Albumin/Globulin Ratio 1.0 Urine Color Rebeca Urine Turbidity Slightly-cloudy Urine pH 5.0 Ur Specific [place] > 1.059 H Urine Protein 30 mg/dl Urine Glucose (UA) Neg Urine Ketones Tr Urine Blood Neg Urine Nitrite Neg Urine Bilirubin Sm Urine Ictotest Positive Urine Urobilinogen 4.0 Ur Leukocyte Esterase Neg Urine WBC (Auto) 10.0 H Urine RBC (Auto) 12.0 U Epithel Cells (Auto) 6.0 Urine WBC Clumps 2+ Calcium Oxalate Crystal 1+ Urine Mucus Few
--- NOTE | 2021-03-03 19:11 | Progress Note ---
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 GI eval uation in progress. Ultrasound-guided paracentesis as well as ascitic fluid analysis ordered (2) Biliary obstruction Current Visit: Yes Status: Acute Plan to address problem: GI team consulted. Patient did not tolerate her MRCP due to claustrophobia. GI is considering EUB instead of ERCP. (3) Hyperbilirubinemia Current Visit: Yes Status: Acute Plan to address problem: With pancreatic/biliary ductal obstruction noted on imaging., AST/ALT unchanged but bilirubin is improving. GI team consulted. (4) Transaminitis Current Visit: Yes Status: Acute Plan to address problem: Repeat AST and LFT unchanged but bilirubin is improving (5) DVT prophylaxis Current Visit: Yes Status: Acute Plan to address problem: SCD to bilateral lower extremities while in bed (6) Advance care planning Current Visit: Yes Status: Acute Plan to address problem: Disease education conducted, care plan discussed, diagnosis discussed, patient is full code, patient knowledges understanding and agreement with care plan History Interval history: 89 YO Female is admitted for possible biliary Obstruction, Ascites, and Abdominal Distention. Patient acknowledges flatus, patient denies constipation. Patient denies abdominal pain at this time. No reported nursing events. Patient is fully alert and oriented. She has no past medical history other than hypertension and dyslipidemia. She lives with her family and functioning well physically and cognitively. She drives. She has no history of liver disease or ascites. Patient presents with abdominal discomfort and noted to have ascites and cirrhosis, GI work-up is in progress. Abdominal discomfort is not significant. She is comfortable. Vital signs stable. Afebrile. AST/ALT unchanged mostly. However bilirubin is improving. She has no nausea vomiting or diarrhea. She is tolerating diet. She was unable to undergo MRCP today due to claustrophobia. She is scheduled for ultrasound-guided paracentesis. GI is considering EUB history of ERCP. Discussed with the patient and the nursing staff. Discontinued IV fluids. History Interval history: Patient is fully alert and oriented. She has no past medical history other than hypertension and dyslipidemia. She lives with her family and functioning well physically and cognitively. She drives. She has no history of liver disease or ascites. Patient presents with abdominal discomfort and noted to have ascites and cirrhosis, GI work-up is in progress. Abdominal discomfort is not significant. She is comfortable. Vital signs stable. Afebrile. AST/ALT unchanged mostly. However bilirubin is improving. She has no nausea vomiting or diarrhea. She is tolerating diet. She was unable to undergo MRCP today due to claustrophobia. She is scheduled for ultrasound-guided paracentesis. GI is considering EUB history of ERCP. Hospitalist Physical - Constitutional Vitals: Temp Pulse Resp BP Pulse Ox 98.1 F 73 18 143/65 94 03/03/21 05:24 03/03/21 11:50 03/03/21 05:24 03/03/21 11:50 03/03/21 17:00 General appearance: Present: no acute distress, well-nourished, other (Well- looking) - EENT Eyes: Present: PERRL, EOM intact ENT: hearing intact - Neck Neck: Present: supple - Respiratory Respiratory effort: normal Respiratory: bilateral: CTA - Cardiovascular Rhythm: regular - Extremities Extremities: No edema - Abdominal General gastrointestinal: soft, non-tender, normal bowel sounds, other (Mild ascites clinically.) - Integumentary Integumentary: Present: warm. Absent: rash - Psychiatric Psychiatric: appropriate mood/affect - Neurologic Neurologic: no focal deficits, moves all extremities HEART Score - HEART Score Age: > 65 Risk factors: 1-2 risk factors Troponin: < normal limit - Critical Actions Critical Actions: 0-3 pts:0.9-1.7%risk of adverse cardiac event.Candidate for discharge Results - Labs CBC & Chem 7: 03/02/21 04:40 03/03/21 06:23 Labs: Laboratory Last Values WBC 9.4 K/mm3 (4.5-11.0) 03/02/21 04:40 RBC 4.37 M/mm3 (3.65-5.03) 03/02/21 04:40 Hgb 14.3 gm/dl (10.1-14.3) 03/02/21 04:40 Hct 42.0 % (30.3-42.9) 03/02/21 04:40 MCV 96 fl (79-97) 03/02/21 04:40 MCH 33 pg (28-32) H 03/02/21 04:40 MCHC 34 % (30-34) 03/02/21 04:40 RDW 13.5 % (13.2-15.2) 03/02/21 04:40 Plt Count 234 K/mm3 (140-440) 03/02/21 04:40 Lymph % (Auto) 17.3 % (13.4-35.0) 03/02/21 04:40 Evans % (Auto) 13.3 % (0.0-7.3) H 03/02/21 04:40 Eos % (Auto) 0.7 % (0.0-4.3) 03/02/21 04:40 Baso % (Auto) 0.4 % (0.0-1.8) 03/02/21 04:40 Lymph # (Auto) 1.6 K/mm3 (1.2-5.4) 03/02/21 04:40 Evans # (Auto) 1.2 K/mm3 (0.0-0.8) H 03/02/21 04:40 Eos # (Auto) 0.1 K/mm3 (0.0-0.4) 03/02/21 04:40 Baso # (Auto) 0.0 K/mm3 (0.0-0.1) 03/02/21 04:40 Seg Neutrophils % 68.3 % (40.0-70.0) 03/02/21 04:40 Seg Neutrophils # 6.4 K/mm3 (1.8-7.7) 03/02/21 04:40 PT 16.5 Sec. (12.2-14.9) H 03/01/21 14:36 INR 1.28 (0.87-1.13) H 03/01/21 14:36 APTT 35.4 Sec. (24.2-36.6) 03/01/21 14:36 Sodium 138 mmol/L (137-145) 03/03/21 06:23 Potassium 3.9 mmol/L (3.6-5.0) 03/03/21 06:23 Chloride 106.5 mmol/L (98-107) 03/03/21 06:23 Carbon Dioxide 22 mmol/L (22-30) 03/03/21 06:23 Anion Gap 13 mmol/L 03/03/21 06:23 BUN 15 mg/dL (7-17) 03/03/21 06:23 Creatinine 0.8 mg/dL (0.6-1.2) 03/03/21 06:23 Estimated GFR > 60 ml/min 03/03/21 06:23 BUN/Creatinine Ratio 19 % 03/03/21 06:23 Glucose 105 mg/dL (65-100) H 03/03/21 06:23 Lactic Acid 1.30 mmol/L (0.7-2.0) 03/01/21 18:43 Calcium 8.8 mg/dL (8.4-10.2) 03/03/21 06:23 Total Bilirubin 2.20 mg/dL (0.1-1.2) H 03/03/21 06:23 Direct Bilirubin 2.0 mg/dL (0-0.2) H 03/01/21 14:36 Indirect Bilirubin 1.1 mg/dL 03/01/21 14:36 AST 81 units/L (5-40) H 03/03/21 06:23 ALT 40 units/L (7-56) 03/03/21 06:23 Alkaline Phosphatase 107 units/L (35-129) 03/03/21 06:23 Total Protein 5.3 g/dL (6.3-8.2) L 03/03/21 06:23 Albumin 2.6 g/dL (3.9-5) L 03/03/21 06:23 Albumin/Globulin Ratio 1.0 % 03/03/21 06:23 Lipase 24 units/L (13-60) 03/01/21 14:36 Urine Color Rebeca (Yellow) 03/02/21 18:41 Urine Turbidity Slightly-cloudy (Clear) 03/02/21 18:41 Urine pH 5.0 (5.0-7.0) 03/02/21 18:41 Ur Specific [place] > 1.059 (1.003-1.030) H 03/02/21 18:41 Urine Protein 30 mg/dl mg/dL (Negative) 03/02/21 18:41 Urine Glucose (UA) Neg mg/dL (Negative) 03/02/21 18:41 Urine Ketones Tr mg/dL (Negative) 03/02/21 18:41 Urine Blood Neg (Negative) 03/02/21 18:41 Urine Nitrite Neg (Negative) 03/02/21 18:41 Urine Bilirubin Sm (Negative) 03/02/21 18:41 Urine Ictotest Positive (Negative) 03/02/21 18:41 Urine Urobilinogen 4.0 mg/dL (<2.0) 03/02/21 18:41 Ur Leukocyte Esterase Neg (Negative) 03/02/21 18:41 Urine WBC (Auto) 10.0 /HPF (0.0-6.0) H 03/02/21 18:41 Urine RBC (Auto) 12.0 /HPF (0.0-6.0) 03/02/21 18:41 U Epithel Cells (Auto) 6.0 /HPF (0-13.0) 03/02/21 18:41 Urine WBC Clumps 2+ /HPF 03/02/21 18:41 Calcium Oxalate Crystal 1+ 03/02/21 18:41 Urine Mucus Few /HPF 03/02/21 18:41 Microbiology: Microbiology 03/01/21 18:43 Peripheral/Venous Blood Culture - Preliminary NO GROWTH AFTER 24 HOURS 03/01/21 18:43 Peripheral/Venous Blood Culture - Preliminary NO GROWTH AFTER 24 HOURS Rodriguez/IV: Voiding Method Diaper Active Medications - Current Medications Current Medications: Generic Name Dose Route Start Last Admin Trade Name Freq PRN Reason Stop Dose Admin Acetaminophen 650 mg 03/01/21 22:39 Acetaminophen 325 Mg Tab PO Q4H PRN Pain MILD(1-3)/Fever >100.5/PRECIADO Bisacodyl 10 mg 03/03/21 17:30 Bisacodyl 5 Mg Tab PO QDAY PRN Constipation Famotidine 10 mg 03/02/21 10:00 03/03/21 11:51 Famotidine 20 Mg/2 Ml Inj IV 10 mg BID HILARIA Administration Heparin Sodium (Porcine) 5,000 unit 03/02/21 10:00 03/03/21 11:51 Heparin 5,000 Unit/1 Ml Vial SUB-Q 5,000 unit Q12HR HILARIA Administration Hydromorphone HCl 0.5 mg 03/01/21 22:39 03/02/21 00:50 Hydromorphone 1 Mg/1 Ml Inj IV 0.5 mg Q3H PRN Administration Pain , Severe (7-10) Magnesium Hydroxide 30 ml 03/03/21 17:30 03/03/21 17:39 Magnesium Hydroxide (Mom) Oral Liqd Udc PO 30 ml QDAY PRN Administration Constipation Metoprolol Succinate 25 mg 03/02/21 10:00 03/03/21 11:50 Metoprolol Succinate Xl 25 Mg Tab PO 25 mg QDAY HILARIA Administration Morphine Sulfate 2 mg 03/01/21 22:39 Morphine 2 Mg/1 Ml Inj IV Q4H PRN Pain, Moderate (4-6) Ondansetron HCl 4 mg 03/01/21 22:39 03/02/21 01:03 Ondansetron 4 Mg/2 Ml Inj IV 4 mg Q8H PRN Administration Nausea And Vomiting Sodium Chloride 10 ml 03/02/21 10:00 03/03/21 11:52 Sodium Chloride 0.9% 10 Ml Flush Syringe IV 10 ml BID HILARIA Administration Sodium Chloride 10 ml 03/01/21 22:39 Sodium Chloride 0.9% 10 Ml Flush Syringe IV PRN PRN LINE FLUSH Nutrition/Malnutrition Assess - Dietary Evaluation Nutrition/Malnutrition Findings: Nutrition Notes Start: 03/02/21 10:02 Freq: Status: Active Protocol: Document 03/03/21 14:46 GB (Rec: 03/03/21 14:59 GB [email or web address]) Nutrition Notes Initial or Follow up Reassessment Current Diagnosis Hypertension Other Pertinent Diagnosis adominal distention, GERD Current Diet cardiac Labs/Tests 03/03: glucose 105, Tbili 2.2, AST 81 Pertinent Medications reviewed Height 5 ft 2 in Weight 65 kg [place] Body Weight (kg) 50.00 BMI 26.2 Intake Prior to Admission Fair Weight change and time frame No reported changes Weight Status Appropriate Subjective/Other Information One po intake recorded at 25%. Pt admitted with distended abdomen Percent of energy/protein needs met: PO intake of 25% of meals meets less than 75% of EEN. Burn Absent Trauma Absent GI Symptoms Constipation Food Allergy No Skin Integrity/Comment No reported complications Current % PO Poor (25-49%) Minimum of two criteria No Energy Intake (non-severe) <75% Estimated Energy Requirement >7 days #1 Nutrition Diagnosis Inadequate energy intake Etiology distended abdomen As Evidenced by Signs and Symptoms pt reporting early satiety, regular eating pattern interrupted Is patient on ventilator? No Is Patient Ambulatory and/or Out of Bed Yes REE-([facility]-ambulatory/OOB) [ 1343.225 NUTR.[id number]] Kcal/Kg value to use for calculation 20 Approximate Energy Requirements Using 1300 kcal/Kg Calculation Used for Recommendations Kcal/kg Additional Notes Protein 1-1.2 g/kg @ 65k- 78g Fluids: 1 ml/kcal or per MD Nutrition Intervention Change Diet Order: Continue Nutrition Support: n/a Add Supplement/Snack (indicate name/kcal ensure enlive daily /protein ) Provides kCal: 350 Provides Protein (gm) 20 Goal #1 PO intake of meals to be 50% or greater daily for LOS Anticipated Discharge Needs: no nutritional specific needs at this time Follow-Up By: 03/10/21 Additional Comments F/u: PO intake meals, weight, supplement started
[2021-03-04] MEDS: METOPROLOL SUCCINATE XL 25 MG TAB PO SCH (10:36)
[2021-03-04] MEDS: HEPARIN 5,000 UNIT/1 ML VIAL SUB-Q SCH ×2 (10:38→22:15)
[2021-03-04] MEDS: FAMOTIDINE 10 MG TAB PO SCH ×3 (10:38→22:15)
--- NOTE | 2021-03-04 11:19 | Procedure Note ---
Date of procedure: 03/04/21 Pre-op diagnosis: ascites Post-op diagnosis: same Procedure: US paracentesis Findings: moderate ascites Anesthesia: local Surgeon: DEE BLACKMAN Estimated blood loss: none Pathology: list (120cc) Specimen disposition: to lab Condition: stable Disposition: floor
--- NOTE | 2021-03-04 13:46 | Progress Note ---
Assessment and Plan Assessment and plan: 89 YO Female is admitted for possible biliary Obstruction, Ascites, and Abdominal Distention. Patient acknowledges flatus, patient denies constipation. Patient denies abdominal pain at this time. No reported nursing events. Patient is fully alert and oriented. She has no past medical history other than hypertension and dyslipidemia. She lives with her family and functioning well physically and cognitively. She drives. She has no history of liver disease or ascites. Patient presents with abdominal discomfort and noted to have ascites and cirrhosis, GI work-up is in progress. Abdominal discomfort is not significant. She is comfortable. Vital signs stable. Afebrile. AST/ALT unchanged mostly. However bilirubin is improving. She has no nausea vomiting or diarrhea. She is tolerating diet. She was unable to undergo MRCP today due to claustrophobia. She is scheduled for ultrasound-guided paracentesis. GI is considering EUS vs ERCP if unable to get MRCP. 03/04: Continue supportive care, Will discuss with GI if EUS will be scheduled in their office and if so will discharge paitent in AM if tolerating diet. 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 GI evaluation in progress. Ultrasound-guided paracentesis as well as ascitic fluid analysis ordered (2) Biliary obstruction Current Visit: Yes Status: Acute Plan to address problem: GI team consulted. Patient did not tolerate her MRCP due to claustrophobia. GI is considering EUB instead of ERCP. (3) Hyperbilirubinemia Current Visit: Yes Status: Acute Plan to address problem: With pancreatic/biliary ductal obstruction noted on imaging., AST/ALT unchanged but bilirubin is improving. GI team consulted. (4) Transaminitis Current Visit: Yes Status: Acute Plan to address problem: Repeat AST and LFT unchanged but bilirubin is improving (5) DVT prophylaxis Current Visit: Yes Status: Acute Plan to address problem: SCD to bilateral lower extremities while in bed (6) Advance care planning Current Visit: Yes Status: Acute Plan to address problem: Disease education conducted, care plan discussed, diagnosis discussed, patient is full code, patient knowledges understanding and agreement with care plan History Interval history: Patient seen and examined post procedure doing well, was able to tolerate diet. Hospitalist Physical - Physical exam Narrative exam: General appearance: Present: no acute distress, well-nourished, other (Well- looking) - EENT Eyes: Present: PERRL, EOM intact ENT: hearing intact - Neck Neck: Present: supple - Respiratory Respiratory effort: normal Respiratory: bilateral: CTA - Cardiovascular Rhythm: regular - Extremities Extremities: No edema - Abdominal General gastrointestinal: soft, non-tender, normal bowel sounds, other (Mild ascites clinically.) - Integumentary Integumentary: Present: warm. Absent: rash - Psychiatric Psychiatric: appropriate mood/affect - Neurologic Neurologic: no focal deficits, moves all extremities - Constitutional Vitals: Temp Pulse Resp BP Pulse Ox 98.4 F 71 16 153/63 93 03/04/21 03:55 03/04/21 10:36 03/04/21 03:55 03/04/21 10:36 03/04/21 05:00 General appearance: Present: no acute distress, well-nourished, other (Well- looking) HEART Score - HEART Score Age: > 65 Risk factors: 1-2 risk factors Troponin: < normal limit - Critical Actions Critical Actions: 0-3 pts:0.9-1.7%risk of adverse cardiac event.Candidate for discharge Results - Labs CBC & Chem 7: 03/02/21 04:40 03/03/21 06:23 Labs: Laboratory Last Values WBC 9.4 K/mm3 (4.5-11.0) 03/02/21 04:40 RBC 4.37 M/mm3 (3.65-5.03) 03/02/21 04:40 Hgb 14.3 gm/dl (10.1-14.3) 03/02/21 04:40 Hct 42.0 % (30.3-42.9) 03/02/21 04:40 MCV 96 fl (79-97) 03/02/21 04:40 MCH 33 pg (28-32) H 03/02/21 04:40 MCHC 34 % (30-34) 03/02/21 04:40 RDW 13.5 % (13.2-15.2) 03/02/21 04:40 Plt Count 234 K/mm3 (140-440) 03/02/21 04:40 Lymph % (Auto) 17.3 % (13.4-35.0) 03/02/21 04:40 [place] % (Auto) 13.3 % (0.0-7.3) H 03/02/21 04:40 Eos % (Auto) 0.7 % (0.0-4.3) 03/02/21 04:40 Baso % (Auto) 0.4 % (0.0-1.8) 03/02/21 04:40 Lymph # (Auto) 1.6 K/mm3 (1.2-5.4) 03/02/21 04:40 [place] # (Auto) 1.2 K/mm3 (0.0-0.8) H 03/02/21 04:40 Eos # (Auto) 0.1 K/mm3 (0.0-0.4) 03/02/21 04:40 Baso # (Auto) 0.0 K/mm3 (0.0-0.1) 03/02/21 04:40 Seg Neutrophils % 68.3 % (40.0-70.0) 03/02/21 04:40 Seg Neutrophils # 6.4 K/mm3 (1.8-7.7) 03/02/21 04:40 PT 16.5 Sec. (12.2-14.9) H 03/01/21 14:36 INR 1.28 (0.87-1.13) H 03/01/21 14:36 APTT 35.4 Sec. (24.2-36.6) 03/01/21 14:36 Sodium 138 mmol/L (137-145) 03/03/21 06:23 Potassium 3.9 mmol/L (3.6-5.0) 03/03/21 06:23 Chloride 106.5 mmol/L (98-107) 03/03/21 06:23 Carbon Dioxide 22 mmol/L (22-30) 03/03/21 06:23 Anion Gap 13 mmol/L 03/03/21 06:23 BUN 15 mg/dL (7-17) 03/03/21 06:23 Creatinine 0.8 mg/dL (0.6-1.2) 03/03/21 06:23 Estimated GFR > 60 ml/min 03/03/21 06:23 BUN/Creatinine Ratio 19 % 03/03/21 06:23 Glucose 105 mg/dL (65-100) H 03/03/21 06:23 Lactic Acid 1.30 mmol/L (0.7-2.0) 03/01/21 18:43 Calcium 8.8 mg/dL (8.4-10.2) 03/03/21 06:23 Total Bilirubin 2.20 mg/dL (0.1-1.2) H 03/03/21 06:23 Direct Bilirubin 2.0 mg/dL (0-0.2) H 03/01/21 14:36 Indirect Bilirubin 1.1 mg/dL 03/01/21 14:36 AST 81 units/L (5-40) H 03/03/21 06:23 ALT 40 units/L (7-56) 03/03/21 06:23 Alkaline Phosphatase 107 units/L (35-129) 03/03/21 06:23 Total Protein 5.3 g/dL (6.3-8.2) L 03/03/21 06:23 Albumin 2.6 g/dL (3.9-5) L 03/03/21 06:23 Albumin/Globulin Ratio 1.0 % 03/03/21 06:23 Lipase 24 units/L (13-60) 03/01/21 14:36 Urine Color Rebeca (Yellow) 03/02/21 18:41 Urine Turbidity Slightly-cloudy (Clear) 03/02/21 18:41 Urine pH 5.0 (5.0-7.0) 03/02/21 18:41 Ur Specific Speed > 1.059 (1.003-1.030) H 03/02/21 18:41 Urine Protein 30 mg/dl mg/dL (Negative) 03/02/21 18:41 Urine Glucose (UA) Neg mg/dL (Negative) 03/02/21 18:41 Urine Ketones Tr mg/dL (Negative) 03/02/21 18:41 Urine Blood Neg (Negative) 03/02/21 18:41 Urine Nitrite Neg (Negative) 03/02/21 18:41 Urine Bilirubin Sm (Negative) 03/02/21 18:41 Urine Ictotest Positive (Negative) 03/02/21 18:41 Urine Urobilinogen 4.0 mg/dL (<2.0) 03/02/21 18:41 Ur Leukocyte Esterase Neg (Negative) 03/02/21 18:41 Urine WBC (Auto) 10.0 /HPF (0.0-6.0) H 03/02/21 18:41 Urine RBC (Auto) 12.0 /HPF (0.0-6.0) 03/02/21 18:41 U Epithel Cells (Auto) 6.0 /HPF (0-13.0) 03/02/21 18:41 Urine WBC Clumps 2+ /HPF 03/02/21 18:41 Calcium Oxalate Crystal 1+ 03/02/21 18:41 Urine Mucus Few /HPF 03/02/21 18:41 Microbiology: Microbiology 03/02/21 18:41 Urine,Clean Catch Urine Culture - Preliminary 03/01/21 18:43 Peripheral/Venous Blood Culture - Preliminary NO GROWTH AFTER 48 HOURS 03/01/21 18:43 Peripheral/Venous Blood Culture - Preliminary NO GROWTH AFTER 48 HOURS Rodriguez/IV: Voiding Method Toilet Active Medications - Current Medications Current Medications: Generic Name Dose Route Start Last Admin Trade Name Freq PRN Reason Stop Dose Admin Acetaminophen 650 mg 03/01/21 22:39 Acetaminophen 325 Mg Tab PO Q4H PRN Pain MILD(1-3)/Fever >100.5/PRECIADO Bisacodyl 10 mg 03/03/21 17:30 Bisacodyl 5 Mg Tab PO QDAY PRN Constipation Famotidine 10 mg 03/04/21 10:00 03/04/21 12:32 Famotidine 10 Mg Tab PO Not Given BID HILARIA Heparin Sodium (Porcine) 5,000 unit 03/02/21 10:00 03/04/21 10:38 Heparin 5,000 Unit/1 Ml Vial SUB-Q 5,000 unit Q12HR HILARIA Administration Hydromorphone HCl 0.5 mg 03/01/21 22:39 03/02/21 00:50 Hydromorphone 1 Mg/1 Ml Inj IV 0.5 mg Q3H PRN Administration Pain , Severe (7-10) Magnesium Hydroxide 30 ml 03/03/21 17:30 03/03/21 17:39 Magnesium Hydroxide (Mom) Oral Liqd Udc PO 30 ml QDAY PRN Administration Constipation Metoprolol Succinate 25 mg 03/02/21 10:00 03/04/21 10:36 Metoprolol Succinate Xl 25 Mg Tab PO 25 mg QDAY HILARIA Administration Morphine Sulfate 2 mg 03/01/21 22:39 Morphine 2 Mg/1 Ml Inj IV Q4H PRN Pain, Moderate (4-6) Ondansetron HCl 4 mg 03/01/21 22:39 03/02/21 01:03 Ondansetron 4 Mg/2 Ml Inj IV 4 mg Q8H PRN Administration Nausea And Vomiting Sodium Chloride 10 ml 03/02/21 10:00 03/04/21 12:33 Sodium Chloride 0.9% 10 Ml Flush Syringe IV 10 ml BID HILARIA Administration Sodium Chloride 10 ml 03/01/21 22:39 Sodium Chloride 0.9% 10 Ml Flush Syringe IV PRN PRN LINE FLUSH Nutrition/Malnutrition Assess - Dietary Evaluation Nutrition/Malnutrition Findings: Nutrition Notes Start: 03/02/21 10:02 Freq: Status: Active Protocol: Document 03/03/21 14:46 GB (Rec: 03/03/21 14:59 GB [email or web address]) Nutrition Notes Initial or Follow up Reassessment Current Diagnosis Hypertension Other Pertinent Diagnosis adominal distention, GERD Current Diet cardiac Labs/Tests 03/03: glucose 105, Tbili 2.2, AST 81 Pertinent Medications reviewed Height 5 ft 2 in Weight 65 kg [place] Body Weight (kg) 50.00 BMI 26.2 Intake Prior to Admission Fair Weight change and time frame No reported changes Weight Status Appropriate Subjective/Other Information One po intake recorded at 25%. Pt admitted with distended abdomen Percent of energy/protein needs met: PO intake of 25% of meals meets less than 75% of EEN. Burn Absent Trauma Absent GI Symptoms Constipation Food Allergy No Skin Integrity/Comment No reported complications Current % PO Poor (25-49%) Minimum of two criteria No Energy Intake (non-severe) <75% Estimated Energy Requirement >7 days #1 Nutrition Diagnosis Inadequate energy intake Etiology distended abdomen As Evidenced by Signs and Symptoms pt reporting early satiety, regular eating pattern interrupted Is patient on ventilator? No Is Patient Ambulatory and/or Out of Bed Yes REE-([facility]-ambulatory/OOB) [ 1343.225 NUTR.[id number]] Kcal/Kg value to use for calculation 20 Approximate Energy Requirements Using 1300 kcal/Kg Calculation Used for Recommendations Kcal/kg Additional Notes Protein 1-1.2 g/kg @ 65k- 78g Fluids: 1 ml/kcal or per MD Nutrition Intervention Change Diet Order: Continue Nutrition Support: n/a Add Supplement/Snack (indicate name/kcal ensure enlive daily /protein ) Provides kCal: 350 Provides Protein (gm) 20 Goal #1 PO intake of meals to be 50% or greater daily for LOS Anticipated Discharge Needs: no nutritional specific needs at this time Follow-Up By: 03/10/21 Additional Comments F/u: PO intake meals, weight, supplement started
--- NOTE | 2021-03-04 13:51 | Ultrasound Report ---
ULTRASOUND-GUIDED PARACENTESIS HISTORY: ascites. PROCEDURE: The risks (including but not limited to bleeding, infection, and bowel injury) and benefi ts were explained to the patient and informed consent was obtained. A time out procedure was perform ed. Ultrasound was used to evaluate the abdomen and locate the largest ascites fluid pocket. Once the sk in was marked, the procedure site was prepped and draped in the usual sterile fashion and lidocaine w as used for local anesthesia. A 5 [place] centesis catheter was placed. The patient was monitored cl osely throughout the procedure, and a total of 4000 mL of clear yellow fluid was aspirated. Samples were sent to the lab for further evaluation per the primary clinicians orders. The patient tolerated the procedure well with no complications. IMPRESSION: Successful ultrasound-guided paracentesis as described. Signer Name: Randall Rhodes Jr, MD Signed: 03/04/2021 1:46 PM Workstation Name: [id number]
[2021-03-04] MEDS ORDERED: levoFLOXacin 500 MG TAB PO SCH (14:00)
--- NOTE | 2021-03-04 14:40 | Gastroenterology Progress Note ---
Assessment and Plan GI: pt w/ dilated cbd w/o obvious etiology w/ mild elevated lft's including T. bili - pt could not do MRCP - s/p paracenthesis, cytology and other labs pending - ca 19-9 and other labs pending - will see pt as outpt and schedule EUS as outpt - if stable in am ok to dc from GI standpoint Subjective Date of service: 03/04/21 Interval history: - no GI issues overnight. Overall stable per staff Objective - Constitutional Vitals: Temp Pulse Resp BP Pulse Ox 98.4 F 71 16 153/63 93 03/04/21 03:55 03/04/21 10:36 03/04/21 03:55 03/04/21 10:36 03/04/21 05:00 General appearance: no acute distress - EENT Eyes: PERRL - Respiratory Respiratory: bilateral: CTA - Cardiovascular Rhythm: regular Heart Sounds: Present: S1 & S2 - Gastrointestinal General gastrointestinal: Present: soft, non-tender, non-distended - Labs CBC & Chem 7: 03/02/21 04:40 03/03/21 06:23
[2021-03-04] MEDS: levoFLOXacin 250 MG TAB PO SCH (22:16)
[2021-03-05] MEDS: FAMOTIDINE 10 MG TAB PO SCH (09:48)
[2021-03-05] MEDS: HEPARIN 5,000 UNIT/1 ML VIAL SUB-Q SCH (09:49)
[2021-03-05] MEDS: levoFLOXacin 250 MG TAB PO SCH (09:51)
[2021-03-05] MEDS: METOPROLOL SUCCINATE XL 25 MG TAB PO SCH (09:51)
--- NOTE | 2021-03-05 10:45 | Discharge Summary ---
Providers - Providers Date of Admission: 03/01/21 22:39 Attending physician: RIRI HERNANDEZ MD 03/01/21 18:01 Consult to Physician [CONS] Urgent Comment: Consulting Provider: SAUD MACIAS Physician Instructions: Reason For Exam: Ascites, transaminitis 03/01/21 18:31 Consult to Physician [CONS] Urgent Comment: Consulting Provider: FAHAD SCOTT Physician Instructions: Reason For Exam: Biliary distention, transaminitis 03/04/21 09:53 Physical Therapy Evaluation and Treat [CONS] Stat Comment: Reason For Exam: eval and treat Primary care physician: LEI SELLER Hospitalization Reason for admission: Abdominal distention Condition: Stable Hospital course: 89 YO Female is admitted for possible biliary Obstruction, Ascites, and Abdominal Distention. Patient acknowledges flatus, patient denies constipation. Patient denies abdominal pain at this time. No reported nursing events. Patient is fully alert and oriented. She has no past medical history other than hypertension and dyslipidemia. She lives with her family and functioning well physically and cognitively. She drives. She has no history of liver disease or ascites. Patient presents with abdominal discomfort and noted to have ascites and cirrhosis, GI work-up is in progress. Abdominal discomfort is not significant. She is comfortable. Vital signs stable. Afebrile. AST/ALT unchanged mostly. However bilirubin is improving. She has no nausea vomiting or diarrhea. She is tolerating diet. She was unable to undergo MRCP today due to claustrophobia. She is scheduled for ultrasound-guided paracentesis. GI is considering EUS vs ERCP if unable to get MRCP. 03/04: Continue supportive care, Will discuss with GI if EUS will be scheduled in their office and if so will discharge paitent in AM if tolerating diet. Ascites w/ noted pancreatic/biliary dilation unclear etiology 03/05: Patient remains clinically stable this morning had no further abdominal pain she is clinically stable for discharge she was unable to get MRCP due to claustrophobia she will have an EUS outpatient GI. I also started her on Lasix and spironolactone. She is to monitor her renal function. And other pending labs Per GI documentation GI: pt w/ dilated cbd w/o obvious etiology w/ mild elevated lft's including T. 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 GI evaluation in progress. Ultrasound-guided paracentesis as well as ascitic fluid analysis ordered (2) Biliary obstruction Current Visit: Yes Status: Acute Plan to address problem: GI team consulted. Patient did not tolerate her MRCP due to claustrophobia. GI is considering EUB instead of ERCP. (3) Hyperbilirubinemia Current Visit: Yes Status: Acute Plan to address problem: With pancreatic/biliary ductal obstruction noted on imaging., AST/ALT unchanged but bilirubin is improving. GI team consulted. (4) Transaminitis Current Visit: Yes Status: Acute Plan to address problem: Repeat AST and LFT unchanged but bilirubin is improving (5) Acute cystitis- CONTINUE ABX Disposition: 01 HOME / SELF CARE / HOMELESS Final Discharge Diagnosis (Prints w/discharge instructions): Decompensated liver cirrhosis with ascites Time spent for discharge: 35-minute Core Measure Documentation - Palliative Care Palliative Care/ Comfort Measures: Not Applicable - Core Measures Any of the following diagnoses?: none Exam - Physical Exam Narrative exam: General appearance: Present: no acute distress, well-nourished, other (Well- looking) - EENT Eyes: Present: PERRL, EOM intact ENT: hearing intact - Neck Neck: Present: supple - Respiratory Respiratory effort: normal Respiratory: bilateral: CTA - Cardiovascular Rhythm: regular - Extremities Extremities: No edema - Abdominal General gastrointestinal: soft, non-tender, normal bowel sounds, other (Mild ascites clinically.) - Integumentary Integumentary: Present: warm. Absent: rash - Psychiatric Psychiatric: appropriate mood/affect - Neurologic Neurologic: no focal deficits, moves all extremities - Constitutional Vitals: Temp Pulse Resp BP Pulse Ox 98.1 F 72 18 135/63 90 03/05/21 04:56 03/05/21 09:51 03/05/21 04:56 03/05/21 04:56 03/05/21 04:56 Plan Activity: advance as tolerated, fall precautions Diet: low salt Special Instructions: restrict fluid intake to (1200CC/DAY), record daily weights, record daily BP diary Plan of Treatment: Patient needs outpatient EUS with [employer] Follow up with: PRIMARY CARE, [Primary Care Provider] - 3-5 Days JOHNNY CHAVEZ MD [Staff Physician] - 7 Days Prescriptions: Spironolactone [Aldactone] 50 mg PO QDAY #30 tablet Furosemide [Lasix] 20 mg PO QDAY #30 tablet levoFLOXacin [Levaquin TAB] 250 mg PO DAILY #3 tablet Famotidine [Pepcid] 10 mg PO BID #60 tablet
[2021-03-05 13:15] VITALS: BP 123/53
--- NOTE | 2021-03-05 16:42 | Gastroenterology Progress Note ---
Assessment and Plan GI: pt w/ dilated cbd w/o obvious etiology w/ mild elevated lft's including T. bili - pt could not do MRCP - s/p paracenthesis, cytology and other labs pending - ca 19-9 and other labs pending - will see pt as outpt and schedule EUS as outpt - iok to dc from GI standpoint, will sign off, call if needed Subjective Date of service: 03/05/21 Interval history: - no GI issues or complaints overnight Objective - Constitutional Vitals: Temp Pulse Resp BP Pulse Ox 97.6 F 64 18 123/53 95 03/05/21 10:56 03/05/21 10:56 03/05/21 10:56 03/05/21 10:56 03/05/21 12:53 General appearance: no acute distress - EENT Eyes: PERRL - Respiratory Respiratory: bilateral: CTA - Cardiovascular Rhythm: regular Heart Sounds: Present: S1 & S2 - Gastrointestinal General gastrointestinal: Present: soft, non-tender, non-distended - Labs CBC & Chem 7: 03/02/21 04:40 03/03/21 06:23
[2021-03-06 17:40] LABS: Total Cells Counted 100 /mm3
[2021-03-17 08:04] LABS: LDH,Body Fluid 29; Total Protein,Body Fluid < 3.0 (15.0-45.0)
== END 2021-03-05 17:45 | disposition home health service (06) | DRG 947 ==
LOC: ED 13:26 → 3A 19:11 → OBSVTOIN 22:39 → 3A 03-02 00:11
PROVIDERS: ADMIT Internal Medicine; ATTEND Internal Medicine
PROC: 0W9G3ZZ Drainage of Peritoneal Cavity, Percutaneous Approach (ICD-10-PCS; principal; 2021-03-04)
DX: R18.8 Other ascites (principal); K83.1 Obstruction of bile duct; E44.0 Moderate protein-calorie malnutrition; N30.00 Acute cystitis without hematuria; E80.6 Other disorders of bilirubin metabolism; R74.01 Elevation of levels of liver transaminase levels; K21.9 Gastro-esophageal reflux disease without esophagitis; I10 Essential (primary) hypertension; Z68.26 Body mass index [BMI] 26.0-26.9, adult; K74.60 Unspecified cirrhosis of liver; Z20.822 Contact with and (suspected) exposure to COVID-19
CPT/HCPCS: 36415; 49083; 74177; 76705; 80048; 80053; 80076; 81001; 82140; 82947; 83605; 83690; 84160; 85025; 85610; 85730; 87040; 87086; 88112; 88305; 88341; 88342; 89051; 93005; G0378; J1170; J1644; J1956; J2270; J2405; J7030; Q9967

== ENCOUNTER 2021-03-21 12:32 | Emergency (ER) | payer MEDICARE ==
[2021-03-21 13:28] LABS: Basophils % (Auto) 0.3 % (0.0-1.8); Eosinophils # (Auto) 0.1 K/mm3 (0.0-0.4); Eosinophils % (Auto) 0.9 % (0.0-4.3); Hematocrit 47.2 % (30.3-42.9); Hemoglobin 15.8 gm/dl (10.1-14.3); Lymphocytes # (Auto) 1.6 K/mm3 (1.2-5.4); Lymphocytes % (Auto) 17.1 % (13.4-35.0); Mean Corpuscular HGB Conc 33 % (30-34); Mean Corpuscular Volume 96 fl (79-97); Monocytes # (Auto) 0.9 K/mm3 (0.0-0.8); Monocytes % (Auto) 10.3 % (0.0-7.3); Platelet Count 273 K/mm3 (140-440); Red Blood Count 4.92 M/mm3 (3.65-5.03); Red Cell Distribution Width 14.5 % (13.2-15.2)
[2021-03-21 13:46] LABS: INR 1.13 (0.87-1.13)
[2021-03-21 13:51] LABS: Albumin 2.8 g/dL (3.9-5); Calcium 9.4 mg/dL (8.4-10.2)
--- NOTE | 2021-03-21 14:34 | Emergency Department Report ---
HPI - General Chief Complaint: Abdominal Pain Time Seen by Provider: 03/21/21 13:00 - HPI HPI: This is an 89-year-old female presents to the emergency department with complaint of a 5-day history of progressively worsening abdominal discomfort and swelling. The patient was admitted here on 03/01 and remained here for a few days secondary to similar symptoms. At the time she had a CT scan of the abdomen and pelvis that showed some biliary dilatation and a severe amount of ascites. The patient had a paracentesis done at that time that was sent off for cytology and ultimately was negative for malignancy. The patient was discharged on 03/05 with a GI progress note saying the patient should follow-up outpatient for further evaluation of her development of cirrhosis and ascites. The patient says that over the past 5 days she has reaccumulated fluid causing her abdominal pain and swelling. ED Past Medical Hx - Past Medical History Hx Hypertension: Yes Hx GERD: Yes Hx HIV: No - Surgical History Additional Surgical History: broken ankle (r), right carotid endardectomy - Social History Smoking Status: Never Smoker Substance Use Type: None - Medications Home Medications: Home Medications Medication Instructions Recorded Confirmed Last Taken Type AtorvaSTATin [Lipitor] 1 tab PO DAILY 02/11/19 03/02/21 Unknown History Metoprolol Xl [Metoprolol 25 mg PO QDAY #30 05/20/19 03/02/21 Unknown Rx SUCCINATE ER TAB] Famotidine [Pepcid] 10 mg PO BID #60 tablet 03/05/21 Unknown Rx Furosemide [Lasix] 20 mg PO QDAY #30 tablet 03/05/21 Unknown Rx Spironolactone [Aldactone] 50 mg PO QDAY #30 tablet 03/05/21 Unknown Rx levoFLOXacin [Levaquin TAB] 250 mg PO DAILY #3 tablet 03/05/21 Unknown Rx ED Review of Systems ROS: Stated complaint: URINE RETENTION X 5 DAYS Other details as noted in HPI Comment: All other systems reviewed and negative Constitutional: denies: chills, fever Eyes: denies: eye pain, vision change ENT: denies: ear pain, throat pain Respiratory: denies: cough, shortness of breath Cardiovascular: denies: chest pain, palpitations Gastrointestinal: abdominal pain. denies: vomiting Genitourinary: denies: dysuria, discharge Musculoskeletal: denies: back pain, arthralgia Skin: denies: rash, lesions Neurological: denies: headache, weakness Physical Exam - Physical Exam Vital Signs: Vital Signs 03/21/21 03/21/21 12:43 13:13 Temperature 98.2 F 97.7 F Pulse Rate 100 H 89 Respiratory 18 13 Rate Blood Pressure 168/96 194/90 [Left] O2 Sat by Pulse 98 99 Oximetry Physical Exam: GENERAL: The patient is well-developed well-nourished. HENT: Normocephalic. Atraumatic. Patient has moist mucous membranes. EYES: Extraocular motions are intact. NECK: Supple. Trachea is midline. CHEST/LUNGS: Clear to auscultation. There is no respiratory distress noted. HEART/CARDIOVASCULAR: Regular. There is no tachycardia. There is no murmur. ABDOMEN: Abdomen is soft. Mild generalized abdominal tenderness to palpation. Mild abdominal distention secondary to ascites. Patient has normal bowel soun ds. SKIN: Skin is warm and dry. NEURO: The patient is awake, alert, and oriented. The patient is cooperative. The patient has no focal neurologic deficits. Normal speech. MUSCULOSKELETAL: There is no tenderness or deformity. There is no limitation range of motion. ED Course Vital Signs 03/21/21 03/21/21 12:43 13:13 Temperature 98.2 F 97.7 F Pulse Rate 100 H 89 Respiratory 18 13 Rate Blood Pressure 168/96 194/90 [Left] O2 Sat by Pulse 98 99 Oximetry - Consultations Consultation #1: 03/21/21 15:33 I spoke with the director of strategic sales environmental studies professor, Dr Cortez. We discussed the patient's presentation, her recent history as an admission here, and my plan for therapeutic paracentesis. He agrees that the patient can be discharged home after paracentesis with outpatient follow-up. ED Medical Decision Making - Lab Data Result diagrams: 03/21/21 13:16 03/21/21 13:16 Labs 03/21/21 03/21/21 03/21/21 13:16 13:16 13:16 WBC 9.1 RBC 4.92 Hgb 15.8 H Hct 47.2 H MCV 96 MCH 32 MCHC 33 RDW 14.5 Plt Count 273 Lymph % (Auto) 17.1 Tift % (Auto) 10.3 H Eos % (Auto) 0.9 Baso % (Auto) 0.3 Lymph # (Auto) 1.6 Tift # (Auto) 0.9 H Eos # (Auto) 0.1 Baso # (Auto) 0.0 Seg Neutrophils % 71.4 H Seg Neutrophils # 6.5 PT 15.7 H INR 1.13 Sodium 139 Potassium 3.9 Chloride 104.3 Carbon Dioxide 23 Anion Gap 16 BUN 18 H Creatinine 0.9 Estimated GFR 59 BUN/Creatinine Ratio 20 Glucose 123 H Calcium 9.4 Total Bilirubin 3.60 H Direct Bilirubin 2.0 H Indirect Bilirubin 1.6 AST 109 H ALT 48 Alkaline Phosphatase 137 H Total Protein 6.0 L Albumin 2.8 L Albumin/Globulin Ratio 0.9 - Medical Decision Making This patient presents with reaccumulation of ascites causing her some abdominal distention and pressure/pain. The abdomen is soft, and generally nontoxic in appearance other than the ascites. Labs have been mostly unremarkable except for the transaminitis and elevated bilirubin consistent with previous visits and her recent liver failure. GI was contacted and agrees with the plan for paracentesis and discharged home. Radiology took the patient for a therapeutic paracentesis. The patient was reevaluated after paracentesis and is feeling greatly improved. Vital signs reassuring throughout her ED course including being afebrile. She will follow-up outpatient with gastroenterology and primary care. Critical Care Time: No Critical care attestation.: If time is entered above; I have spent that time in minutes in the direct care of this critically ill patient, excluding procedure time. ED Disposition Clinical Impression: Abdominal pain, Ascites, Transaminitis, Hyperbilirubinemia Disposition: 01 HOME / SELF CARE / HOMELESS Is pt being admited?: No Condition: Stable Instructions: Paracentesis, Care After, Ascites, Abdominal Pain (ED) Additional Instructions: Please follow-up with your primary care physician in the next few days. Please follow-up with Dr. [facility] [place] [facility] regarding your recent admission and paracentesis. Take all home medications as prescribed. Return to the emergency department with any worsening of your symptoms, new or concerning symptoms not addressed during this current emergency department visit, or with any acute distress. Referrals: JOHNNY MAJOR MD [Staff Physician] - 3-5 Days Time of Disposition: 15:33
--- NOTE | 2021-03-21 14:45 | Procedure Note ---
Date of procedure: 03/21/21 Pre-op diagnosis: Ascites Post-op diagnosis: same Procedure: US guided paracentesis. Findings: See radiology report. Anesthesia: local Surgeon: LAMAR SIMPSON Estimated blood loss: none Pathology: none Specimen disposition: discarded Condition: stable Disposition: floor
[2021-03-21] MEDS ORDERED: ALBUMIN HUMAN 25% (25 GM/100 ML) INJ IV PRN (14:46)
--- NOTE | 2021-03-21 15:20 | Ultrasound Report ---
Ultrasound-guided paracentesis HISTORY: Abd pain and distention, ascites. PROCEDURE: The risks (including but not limited to bleeding, infection, and bowel injury) and benefi ts were explained to the patient and informed consent was obtained. A time out procedure was perform ed. Ultrasound was used to evaluate the abdomen and locate the largest ascites fluid pocket. Once the sk in was marked, the procedure site was prepped and draped in the usual sterile fashion and lidocaine w as used for local anesthesia. A skin lee was made and a 6-[place] paracentesis catheter was placed. The patient was monitored closely throughout the procedure, and a total of 4600 mL of thin yellow fl uid was aspirated. The patient tolerated the procedure well with no complications. IMPRESSION: Successful paracentesis as above with a total of 4600 mL of thin yellow fluid aspirated. Signer Name: Sacha Wesley MD Signed: 03/21/2021 3:15 PM Workstation Name: [id number]
[2021-03-21 16:13] VITALS: BP 149/67
== END 2021-03-21 17:00 | disposition home or self-care (01) ==
LOC: ED 12:32
DX: R18.8 Other ascites (principal); R10.9 Unspecified abdominal pain; R74.01 Elevation of levels of liver transaminase levels; E78.5 Hyperlipidemia, unspecified; K74.60 Unspecified cirrhosis of liver; I10 Essential (primary) hypertension; K21.9 Gastro-esophageal reflux disease without esophagitis; Z98.890 Other specified postprocedural states; Z88.0 Allergy status to penicillin
CPT/HCPCS: 36415; 49083; 80048; 80076; 85025; 85610; 99284